=== PATIENT | female | born 1985 | race African-American/Black ===

== ENCOUNTER 2022-11-11 10:12 | Outpatient (CLI) | payer OTHER, SELFPAY ==
[2022-11-11 11:03] LABS: Influenza A QL RT-PCR Negative (Negative); Influenza B QL RT-PCR Negative (Negative); RSV RNA, RT-PCR Negative (Negative); SARS-CoV-2 RNA PCR Negative
== END 2022-11-11 10:13 | disposition home or self-care (01) ==
PROVIDERS: PCP Internal Medicine; Visit Provider Nurse Practitioner Family
DX: R06.2 Wheezing (principal); R05.9 Cough, unspecified; R06.00 Dyspnea, unspecified
CPT/HCPCS: 87637

== ENCOUNTER 2022-12-07 11:06 | Outpatient (CLI) | payer OTHER, SELFPAY ==
--- NOTE | ~2022-12-07 | XR_ITS ---
Clinical Indication: Shortness of breath PA and lateral views of the chest: Comparison: 06/06/2016 Findings: The lungs are clear, without evidence of focal consolidation or pleural effusion. Cardiome diastinal silhouette is within normal limits. Bones and soft tissues are unremarkable. Impression: Normal chest. Reviewed, dictated and finalized at [facility]. CAR LOADER Impression: Normal chest.
[2022-12-07 12:29] LABS: Basophils Percent Auto 0.4 % (0.2-1.2); Eosinophils Absolute Auto 0.3 K/mm3 (0-0.3); Eosinophils Percent Auto 2.8 % (0-4.4); Hematocrit 43.9 % (37.0-47.0); Hemoglobin 14.5 g/dL (12.0-15.0); Immature Granulocyte Absolute 0.02 K/mm3 (0.00-0.031); Immature Granulocyte Percent A 0.2 % (0-0.5); Lymphocytes Absolute Auto 3.88 K/mm3 (0.9-3.2); Mean Corpuscular Hemoglobin 30.3 pg (26-34); Mean Corpuscular Volume 91.8 fl (80-100); Mean Platelet Volume 10.4 fl (7.4-10.4); Monocytes Absolute Auto 0.8 K/mm3 (0.1-0.6); Monocytes Percent Auto 7.3 % (2.6-8.5); Neutrophils Absolute Auto 5.5 K/mm3 (1.3-6.7); Neutrophils Percent Auto 52.3 % (45.5-73.1); Platelet Count Result 261 k/mm3 (150-375); Red Blood Count 4.78 M/mm3 (4.2-5.4); Red Cell Distribution Width 14.2 % (11.5-14.5); White Blood Count 10.5 K/mm3 (4.5-10.0)
== END 2022-12-07 11:07 | disposition home or self-care (01) ==
PROVIDERS: PCP Internal Medicine; Visit Provider Nurse Practitioner Family
DX: J45.909 Unspecified asthma, uncomplicated (principal); R06.02 Shortness of breath; R05.9 Cough, unspecified
CPT/HCPCS: 36415; 71046; 85025

== ENCOUNTER 2023-01-17 11:28 | Outpatient (CLI) | payer OTHER, SELFPAY ==
[2023-01-21 04:31] LABS: Immunoglobulin E 107 kU/L (<=114)
== END 2023-01-17 11:29 | disposition home or self-care (01) ==
PROVIDERS: PCP Internal Medicine; Visit Provider Nurse Practitioner Family
DX: J45.909 Unspecified asthma, uncomplicated (principal)
CPT/HCPCS: 36415; 82785

== ENCOUNTER 2023-03-29 08:50 | Outpatient (CLI) | payer OTHER, SELFPAY ==
--- NOTE | 2023-03-29 11:00 | NEURO_ITS ---
Impression: # Complains of pain and numbness of hands. # Right ulnar neuropathy across the elbow. # No Carpal Tunnel Syndrome. # Normal needle/EMG exam. Nerve Conduction Studies Anti Sensory Summary Table Stim Site NR Peak (ms) P-T Amp (?V) Site1 Site2 Delta-P (ms) Dist (cm) Omega (m/s) Left Median Anti Sensory (2-3nd Digit) Wrist 2.3 74.7 Wrist 2-3nd Digit 2.3 14.0 61 Wrist 2.4 65.6 Wrist 2-3nd Digit 2.3 14.0 61 Right Median Anti Sensory (2-3nd Digit) Wrist 2.7 55.1 Wrist 2-3nd Digit 2.7 14.0 52 Wrist 2.7 70.3 Wrist 2-3nd Digit 2.7 14.0 52 Left Radial Anti Sensory (Base 1st Digit) Wrist 1.8 39.0 Wrist Base 1st Digit 1.8 0.0 Right Radial Anti Sensory (Base 1st Digit) Wrist 2.3 31.9 Wrist Base 1st Digit 2.3 0.0 Left Ulnar Anti Sensory (5th Digit) Wrist 2.2 56.9 Wrist 5th Digit 2.2 14.0 64 Right Ulnar Anti Sensory (5th Digit) Wrist 2.3 73.2 Wrist 5th Digit 2.3 14.0 61 Motor Summary Table Stim Site NR Onset (ms) O-P Amp (mV) Site1 Site2 Delta-0 (ms) Dist (cm) Omega (m/s) Left Median Motor (Abd Poll Brev) Wrist 2.3 7.2 Elbow Wrist 4.9 29.0 59 Elbow 7.2 6.0 Right Median Motor (Abd Poll Brev) Wrist 2.8 6.5 Elbow Wrist 4.1 26.0 63 Elbow 6.9 6.2 Left Ulnar Motor (Abd Dig Minimi) Wrist 2.3 6.0 A Elbow Wrist 4.3 25.0 58 A Elbow 6.6 4.4 Right Ulnar Motor (Abd Dig Minimi) Wrist 2.2 7.1 A Elbow Wrist 5.2 28.0 54 A Elbow 7.4 4.8 B Elbow Wrist 3.3 21.0 64 B Elbow 5.5 3.7 F Wave Studies NR F-Lat (ms) L-R F-Lat (ms) Left Median (Mrkrs) (Abd Poll Brev) 24.55 0.77 Right Median (Mrkrs) (Abd Poll Brev) 25.32 0.77 Left Ulnar (Mrkrs) (Abd Dig Min) 25.10 0.14 Right Ulnar (Mrkrs) (Abd Dig Min) 25.23 0.14 EMG Side Muscle Nerve Root Ins Act Fibs Amp Dur Recrt Comment Right 1stDorInt Ulnar C8-T1 Nml Nml Nml Nml Nml Right Ext Indicis Radial (Post Int) C7-8 Nml Nml Nml Nml Nml Right Ext Digitorum Radial (Post Int) C7-8 Nml Nml Nml Nml Nml Right BrachioRad Radial C5-6 Nml Nml Nml Nml Nml Right PronatorTeres Median C6-7 Nml Nml Nml Nml Nml Right Abd Poll Brev Median C8-T1 Nml Nml Nml Nml Nml Left 1stDorInt Ulnar C8-T1 Nml Nml Nml Nml Nml Left Ext Indicis Radial (Post Int) C7-8 Nml Nml Nml Nml Nml Left Ext Digitorum Radial (Post Int) C7-8 Nml Nml Nml Nml Nml Left BrachioRad Radial C5-6 Nml Nml Nml Nml Nml Left PronatorTeres Median C6-7 Nml Nml Nml Nml Nml Left Abd Poll Brev Median C8-T1 Nml Nml Nml Nml Nml Right ABD Dig Min Ulnar C8-T1 Nml Nml Nml Nml Nml Left ABD Dig Min Ulnar C8-T1 Nml Nml Nml Nml Nml MTDD
== END 2023-03-29 08:51 | disposition home or self-care (01) ==
PROVIDERS: PCP Nurse Practitioner Family
DX: G56.21 Lesion of ulnar nerve, right upper limb (principal)
CPT/HCPCS: 95886; 95911

== ENCOUNTER 2023-12-29 12:34 | Outpatient (CLI) | payer OTHER, SELFPAY ==
[2023-12-29 12:59] LABS: Basophils Percent Auto 0.4 % (0.2-1.2); Eosinophils Absolute Auto 0.3 K/mm3 (0-0.3); Eosinophils Percent Auto 2.8 % (0-4.4); Hematocrit 43.3 % (37.0-47.0); Hemoglobin 14.2 g/dL (12.0-15.0); Immature Granulocyte Absolute 0.02 K/mm3 (0.00-0.031); Immature Granulocyte Percent A 0.2 % (0-0.5); Lymphocytes Absolute Auto 4.97 K/mm3 (0.9-3.2); Lymphocytes Percent Auto 45.5 % (18.3-44.2); Mean Corpuscular HGB Conc 32.8 g/dl (32-36); Mean Corpuscular Hemoglobin 30.4 pg (26-34); Mean Corpuscular Volume 92.7 fl (80-100); Mean Platelet Volume 9.8 fl (7.4-10.4); Monocytes Percent Auto 8.9 % (2.6-8.5); Neutrophils Absolute Auto 4.6 K/mm3 (1.3-6.7); Neutrophils Percent Auto 42.2 % (45.5-73.1); Platelet Count Result 268 k/mm3 (150-375); Red Blood Count 4.67 M/mm3 (4.2-5.4); Red Cell Distribution Width 13.8 % (11.5-14.5); White Blood Count 10.9 K/mm3 (4.5-10.0)
[2023-12-29 13:27] LABS: Atypical Lymphocytes Present; Platelet Estimate Adequate (Adequate); Schistocytes None Seen (NORMAL)
== END 2023-12-29 12:35 | disposition home or self-care (01) ==
LOC: ANHLAB 12:36
PROVIDERS: PCP Nurse Practitioner Family; Visit Provider Nurse Practitioner Family
DX: J45.40 Moderate persistent asthma, uncomplicated (principal)
CPT/HCPCS: 36415; 85025

== ENCOUNTER 2024-01-11 06:19 | Outpatient (CLI) | payer OTHER, SELFPAY ==
--- NOTE | 2024-01-24 21:44 | WPDSLEEPSTUD ---
Sleep Study Date of Study: 01/11/24 Ordering Provider: Charles Stein APRN Interpreting Physician: Lucrecia Burger MD Sleep Study Type: Split Polysomnogram Height: 1.57 m Weight: 122.47 kg Body Mass Index: 49.4 Neck Circumference (inches): 16 [place]: 20 Reason for Sleep Study Excessive sleepiness, mixed narcolepsy with obstructive sleep apnea * 02/09/18 nocturnal polysomnogram = very short sleep latency and short REM latency most likely consistent with inadequately controlled narcolepsy. * 05/30/2028 split night sleep study; severe HELDER, AHI 41 in supine, with a titration of CPAP, which improved sleep staging, the presence of significant REM rebound. Recommended treatment was APAP [id number]. Sleep History Richa Brown is a 38-year-old woman with severe excessive daytime sleepiness. her baseline medical comorbidities include hypertension, GERD, anxiety and depression, environmental allergies, narcolepsy without cataplexy and obstructive sleep apnea. She has not been able to wear APAP effectively. She cannot get enough quality sleep at night. She wakes during the night. Once she is awake at night, it is difficult for her to return to sleep. She has a difficult time using PAP due to shortness of breath and the sensation of choking during the night. This suggests that her asthma and allergies are not treated appropriately. In her sleep questionnaire, she says she has some sleep paralysis. She has a difficult time focusing during the day. She has had prior sleep studies, currently takes modafinil 200 mg twice a day without much help. Dr Ottoniel Dang, ENT/allergy, at [facility] performed a turbinate reduction and adenoidectomy earlier this year, and she believes that this may have helped her breathing, She has used nasal sprays, has not been able to get all her issues improved at the same time. With nasal problems, poorly controlled asthma, untreated obstructive sleep apnea and narcolepsy, she is not feeling well. She is being re-tested for HELDER in hopes of getting a pressure that she can tolerate to manage her HELDER nad narcolepsy better. She has issues trying to fall asleep and maintain sleep. She has tried melatonin and Tylenol PM without improvement. She is maintained on modafinil 200mg at 6:00 a.m. and 200mg at noon. She feels the medication is effective for only 2 hours. For this reason, she does not drive, uses public transportation. She constantly awakens from sleep short of breath. She constantly wakes at night with heartburn, belching or coughing.??She constantly snores, and always snores loudly enough that others complain. She frequently has trouble sleeping when she has a cold. She constantly wakes up gasping for breath during the night. She constantly has breathing problems at night. She constantly sweats excessively at night. She frequently notices her heart pounding or beating irregularly during the night. She constantly falls asleep during the day. She constantly falls asleep involuntarily, does not fall asleep while driving as she has given this up due to excessive sleepiness. She takes public transportation. She does not have difficulties at work due to excessive sleepiness because she no longer works due to her multiple medical problems. She frequently experiences loss of muscle tone with strong emotion. She constantly feels paralyzed on waking or falling asleep. She constantly experiences vivid dreams upon waking or falling asleep. She rarely feels afraid of going to sleep. She occasionally has nightmares. She occasionally recalls her dreams. She frequently has thoughts racing through her mind. She frequently feels sad or depressed. She constantly feels anxiety. She constantly notices parts of her body jerk. She occasionally kicks during the night. She frequently feels crawling or aching feelings in her legs. She frequently feels leg pain at night. She frequently has morning jaw pain, although she never grinds her teeth at
[2024-01-24 21:47] VITALS: BMI 49.4
== END 2024-01-12 07:56 | disposition home or self-care (01) ==
PROVIDERS: PCP Nurse Practitioner Family; Visit Provider Nurse Practitioner Family
DX: G47.33 Obstructive sleep apnea (adult) (pediatric) (principal); I10 Essential (primary) hypertension; Z68.42 Body mass index [BMI] 45.0-49.9, adult
CPT/HCPCS: 95811

== ENCOUNTER 2024-01-18 11:28 | Outpatient (CLI) | payer OTHER, SELFPAY ==
[2024-01-21 15:13] LABS: DHEA-Sulfate 238 mcg/dL (23-266)
[2024-01-24 00:55] LABS: Testosterone Free 6.9 pg/mL (0.1-6.4); Testosterone Total 46 ng/dL (2-45)
== END 2024-01-18 11:29 | disposition home or self-care (01) ==
LOC: ANHLAB 11:30
PROVIDERS: PCP Nurse Practitioner Family; Visit Provider Obstetrics & Gynecology
DX: E66.9 Obesity, unspecified (principal)
CPT/HCPCS: 36415; 82627; 83498; 84402; 84403

== ENCOUNTER 2024-11-05 08:05 | Outpatient (CLI) | payer OTHER, SELFPAY ==
--- NOTE | 2024-11-05 09:15 | NEURO_ITS ---
Impression: # Complains of numbness of hands. Status post Carpal Tunnel Release last year. Borderline diabetic. ? # Normal Nerve Conduction Study; No Carpal Tunnel Syndrome or ulnar neuropathy. # Normal needle/EMG exam. # Clinical correlation recommended. Nerve Conduction Studies Anti Sensory Summary Table ?Stim Site NR Peak (ms) P-T Amp (?V) Site1 Site2 Delta-P (ms) Dist (cm) Omega (m/s) Left Median Anti Sensory (2-3nd Digit) Wrist ? 2.6 68.9 Wrist 2-3nd Digit 2.6 14.0 54 Wrist ? 2.6 77.2 Wrist 2-3nd Digit 2.6 14.0 54 Right Median Anti Sensory (2-3nd Digit) Wrist ? 2.6 53.4 Wrist 2-3nd Digit 2.6 14.0 54 Wrist ? 2.6 67.7 Wrist 2-3nd Digit 2.6 14.0 54 Left Radial Anti Sensory (Base 1st Digit) Wrist ? 2.3 17.1 Wrist Base 1st Digit 2.3 0.0 Right Radial Anti Sensory (Base 1st Digit) Wrist ? 2.7 12.0 Wrist Base 1st Digit 2.7 0.0 Left Ulnar Anti Sensory (5th Digit) Wrist ? 2.4 67.4 Wrist 5th Digit 2.4 14.0 58 Right Ulnar Anti Sensory (5th Digit) Wrist ? 2.3 58.9 Wrist 5th Digit 2.3 14.0 61 Motor Summary Table ?Stim Site NR Onset (ms) O-P Amp (mV) Site1 Site2 Delta-0 (ms) Dist (cm) Omega (m/s) Left Median Motor (Abd Poll Brev) Wrist ? 2.7 7.8 Elbow Wrist 5.6 32.0 57 Elbow ? 8.3 2.9 Right Median Motor (Abd Poll Brev) Wrist ? 3.0 6.4 Elbow Wrist 4.2 26.0 62 Elbow ? 7.2 5.9 Left Ulnar Motor (Abd Dig Minimi) Wrist ? 2.0 6.3 A Elbow Wrist 4.3 25.0 58 A Elbow ? 6.3 5.6 Right Ulnar Motor (Abd Dig Minimi) Wrist ? 2.3 5.4 A Elbow Wrist 4.6 27.0 59 A Elbow ? 6.9 4.8 F Wave Studies ?NR F-Lat (ms) L-R F-Lat (ms) Left Median (Mrkrs) (Abd Poll Brev) ? 26.45 0.94 Right Median (Mrkrs) (Abd Poll Brev) ? 27.39 0.94 Left Ulnar (Mrkrs) (Abd Dig Min) ? 26.56 0.08 Right Ulnar (Mrkrs) (Abd Dig Min) ? 26.48 0.08 EMG ?Side Muscle Nerve Root Ins Act Fibs Amp Dur Recrt Comment Right 1stDorInt Ulnar C8-T1 Nml Nml Nml Nml Nml Right Ext Indicis Radial (Post Int) C7-8 Nml Nml Nml Nml Nml Right Ext Digitorum Radial (Post Int) C7-8 Nml Nml Nml Nml Nml Right BrachioRad Radial C5-6 Nml Nml Nml Nml Nml Right PronatorTeres Median C6-7 Nml Nml Nml Nml Nml Right Abd Poll Brev Median C8-T1 Nml Nml Nml Nml Nml Right ABD Dig Min Ulnar C8-T1 Nml Nml Nml Nml Nml Left 1stDorInt Ulnar C8-T1 Nml Nml Nml Nml Nml Left Ext Indicis Radial (Post Int) C7-8 Nml Nml Nml Nml Nml Left Ext Digitorum Radial (Post Int) C7-8 Nml Nml Nml Nml Nml Left BrachioRad Radial C5-6 Nml Nml Nml Nml Nml Left PronatorTeres Median C6-7 Nml Nml Nml Nml Nml Left Abd Poll Brev Median C8-T1 Nml Nml Nml Nml Nml Left ABD Dig Min Ulnar C8-T1 Nml Nml Nml Nml Nml MTDD
== END 2024-11-05 08:06 | disposition home or self-care (01) ==
PROVIDERS: Visit Provider Orthopaedic Surgery
DX: M54.12 Radiculopathy, cervical region (principal); R20.0 Anesthesia of skin
CPT/HCPCS: 95886; 95911

== ENCOUNTER 2025-01-08 13:13 | Outpatient (CLI) | payer OTHER, SELFPAY ==
--- OUTSIDE RECORDS SUMMARY | 2025-01-08 15:04 | XMS_ITS | Referral Summary ---
Author Organization [facility] Address [address] [place] [address] Care Team Providers Care Manual Lathe Machinist Name Role Phone Adela Juarez Primary Care Provider [phone] Source Comments [facility],non-owned Affiliates and Associated Physician Practices is amultiple site organization consisting of ambulatory clinics and hospital sitesin [place], [place], [place] and [place]. This disclosure is being madepursuant to the Care Everywhere program and may not contain all information available regarding this patient. Last updated 18.[facility] Encounters Date Type Department Care Team Description 12/10/2024 Travel 12/10/2024 12:25 PM INJECTION MOULDING MACHINE OPERATOR - 12/10/2024 11:59 PM INJECTION MOULDING MACHINE OPERATOR Hospital Encounter [facility] [address] [facility] [address] [place] [address] Chencho Kingston MD Anesthesiology Discharge Disposition: Home or Self Care 11/29/2024 Travel 11/15/2024 Telephone [facility] [address] [place] [phone] Ottoniel Dang MD Immunotherapy (Vial count) 11/15/2024 Travel 11/15/2024 1:15 PM INJECTION MOULDING MACHINE OPERATOR Office Visit [facility] [address] [place] [phone] Ottoniel Dang MD Allergic rhinitis due to pollen, unspecified seasonality (Primary Dx); HELDER (obstructive sleep apnea); Nasal turbinate hypertrophy 11/13/2024 Orders Only [facility] [address] [facility] [address] [place] [address] Chencho Kingston MD Muscle pain ; Trigger point of thoracic region 11/13/2024 Telephone [facility] [address] [facility] [address] [place] [address] Nelly Germain RN Follow-up 10/17/2024 Travel from Last 3 Months Allergies Active Allergy Reactions Criticality Noted Date Comments Shellfish Allergy Itching 12/27/2022 Medications * Be aware that medications may not be up to date on this document. Alwaysverify current medications with the patient. Medication Sig Dispensed Refills Start Date End Date Status modafinil (Provigil) 200 MG tablet Take 1 (one) tablet by mouth 2 times daily 12/20/2022 Active fluticasone propionate (Flonase) 50 MCG/ACT nasal spray [place] 1 (one) spray into each nostril 2 times daily 12/14/2022 Active vitamin D, ergocalciferol, (Drisdol) 1.25 MG (72407 UT) capsule Take 1 (one) capsule by mouth every 7 days 11/21/2022 Active Symbicort 160-4.5 MCG/ACT inhaler Inhale 2 (two) puffs by mouth 2 times daily 12/14/2022 Active benzonatate (Tessalon) 200 MG capsule Take 1 (one) capsule by mouth 3 times daily as needed for cough 12/15/2022 Active amLODIPine (Norvasc) 10 MG tablet Take 1 (one) tablet by mouth once daily 10/10/2022 Active albuterol (Proventil;Ventol in) (2.5 MG/3ML) 0.083% nebulizer solution Inhale 2.5 (two and one-half) mg by mouth as needed 11/15/2022 Active escitalopram (Lexapro) 20 MG tablet Take 1 (one) tablet by mouth once daily 04/22/2023 Active cyanocobalamin (Vitamin B-12) injection Inject 0.1 mcg into muscle every 30 days Active azelastine (Astelin) 0.1 % nasal spray [place] 1 (one) spray into each nostril 2 times daily 90 mL 4 05/12/2023 Active cetirizine (ZyrTEC) 10 MG tablet Take 1 (one) tablet by mouth once daily 90 tablet 4 05/12/2023 Active montelukast (Singulair) 10 MG tablet Take 1 (one) tablet by mouth once daily Active albuterol HFA (Proventil; Ventolin; Proair) 108 (90 Base) MCG/ACT inhaler Inhale 1 (one) puff by mouth as needed 05/22/2023 Active famotidine (Pepcid) 40 MG tablet 08/25/2023 Active pantoprazole (Protonix) 40 MG packet 08/25/2023 Active losartan (Cozaar) 50 MG tablet Take 1 (one) tablet by mouth once daily 09/09/2023 Active EPINEPHrine (Epipen) 0.3 MG/0.3ML auto-injector pen Inject 0.3 mL into muscle once as needed for Anaphylaxis 0.6 mL 11/01/2023 Active Additional Information Patient not taking.Reported on 11/15/2024 cyclobenzaprine (Flexeril) 10 MG tabletIndications :Lumbar facet arthropathy Take 1 (one) tablet by mouth 3 times daily as needed for Muscle Spasms 90 tablet 3 01/17/2024 Active spironolactone (Aldactone) 50 MG tablet Take 1 (one) tablet by mouth 2 times daily 01/24/2024 Active Spiriva Respimat 1.25 MCG/ACT AERS Inhale 2 puffs by mouth every 24 hours 02/02/2024 Active topiramate (Topamax) 100 MG tablet Take 1 (one) tablet by mouth once daily for 7 days, THEN 1.5 (one and one-half) tablets once daily for 7 days, THEN 1 (one) tablet 2 times daily. 110 tablet 2 04/04/2024 Active Additional Information Patient taking differently: 100mg BID, Reported on 07/13/2024 Blood Glucose Monitoring Suppl (Blood Glucose Monitor System) w/Device KITIndications:Pr ediabetes Use 1 Each as directed check blood sugar three times daily 1 Each 05/01/2024 Active lancetsIndication s:Prediabetes Use 1 (one) Each 3 times daily 100 Each 11 05/01/2024 Active blood glucose test stripIndications: Prediabetes Use 1 (one) strip 3 times daily 50 strip 2 05/01/2024 Active SYRINGE-NEEDLE, DISP, 3 ML 25G X 5/8 3 ML MISC As directed for immunotherapy 30 Each 2 06/05/2024 Active Sodium Oxybate ER (Lumryz) 4.5 g PACK Take 4.5 mg by mouth at bedtime Active oxyCODONE, immediate release, (Roxicodone) 5 MG tabletIndications :Post-op pain Take 1 (one) tablet by mouth every 4 hours as needed 12 tablet 07/31/2024 Active Additional Information Patient not taking.Reported on 11/15/2024 acetaminophen (Tylenol) 325 MG tablet Take 2 (two) tablets by mouth every 6 hours as needed for Fever or Pain Maximum allowable Acetaminophen amount = 4 Grams (4000 mg) / 24 hours. 60 tablet 07/31/2024 Active ibuprofen (Motrin) 600 MG tablet Take 1 (one) tablet by mouth every 6 hours as needed for Pain 30 tablet 07/31/2024 Active busPIRone (Buspar) 7.5 MG tablet Take 1 (one) tablet by mouth 2 times daily 10/15/2024 Active cyanocobalamin (Vitamin B-12) injection Inject 1,000 (one thousand) mcg subcutaneously every 30 days 10/15/2024 Active Active Problems Patient Care Coordination No te Formatting of this note migh t be different from the original. Repeat US needed 4-5 weeks from 10/24 Problem Noted Date Diagnosed Date Primary obstructive sleep apnea of 07/30 Amenorrhea 09/06/2023 09/06/2023 Bacterial vaginosis 09/06/2023 09/06/2023 Heart valve disease 09/06/2023 09/06/2023 Irregular periods 09/06/2023 09/06/2023 Menorrhagia 09/06/2023 09/06/2023 Obesity 09/06/2023 09/06/2023 Recurrent ventral hernia 09/06/2023 023 Uterine leiomyoma 09/06/2023 09/06/2023 Gastroesophageal reflux disease without esophagi tis 08/25/2023 09/06/2023 Increased frequency of urination 08/25/2023 09/06/2023 Sprain of left ankle 08/25/2023 09/06/2023 Left wrist pain 08/09/2023 09/06/2023 Degeneration of thoracic intervertebral disc 09/06/2023 Carpal tunnel syndrome 05/09/2023 Encounter for screening for cardiovascular disor ders 05/09/2023 09/06/2023 Hypertension 05/09/2023 09/06/2023 Shortness of breath 05/09/2023 09/06/2023 Numbness of hand 05/03/2023 09/06/2023 Mixed anxiety and depressive disorder 04/22/2023 09/06/2023 Pain in both feet 04/22/2023 09/06/2023 Chest pain 04/22/2023 09/06/2023 Ulnar nerve entrapment at elbow 04/05/2023 09/06/2023 Claustrophobia 03/17/2023 09/06/2023 Pain in both hands 02/16/2023 09/06/2023 Paresthesia 02/16/2023 09/06/2023 Hypertrophy of adenoids 01/25/2023 09/06/20 Neck pain 01/25/2023 09/06/2023 Thoracic back pain 01/25/2023 09/06/2023 Sleep apnea 01/19/2023 09/06/2023 Hyperlipidemia 01/19/2023 09/06/2023 Insulin resistance 01/19/2023 09/06/2023 Narcolepsy 01/19/2023 09/06/2023 Vitamin D deficiency 12/29/2022 09/06/2023 Elevated creatine kinase level 06/22/2022 1 High C-reactive protein 06/22/2022 09/06/20 Leukocytosis 06/22/2022 09/06/2023 Cobalamin deficiency 02/18/2022 09/06/2023 Vitamin B12 deficiency (non anemic) 12/27/2021 09/06/2023 Supervision of other high-risk 013 Overview (09/21/2015): CMV IgG 3.14 (positive), IgM <0.2 not detected, IgG avidity index 0.87 (>0.6 high avidity index). Resolved Problems Problem Noted Date Diagnosed Date Resolved Date Upper respiratory infection 03/21/2023 09/06/2023 09/20/2023 Immunizations Name Administration Dates Next Due Candida Jaime primary monova lent 12+ yr 0.5mL 11/10/2021,10/21/2021,10/04/2021, 021 DTP, HISTORIC VACCINE 08/27/1993, 988,09/11/1987, 987,06/05/1987,04/03/1987,01/30/1987 FLU, HISTORIC VACCINE 10/18/2005 HEP B VACCINE, PED/ADOL 03/05/1997,11/20/1996, HIB VACCINE 11/23/1988 INFLUENZA VACCINE 10/18/2005 INFLUENZA VACCINE, QUADR. (F LUZONE; FLULAVAL; FLUARIX; AFLURIA QUADRIVALENT; 6MO+), 0.5 ML (IIV4) 08/25/2023,10/04/2022 MMR VACCINE 08/27/1993,01/07/1988 POLIO OPV 08/27/1993, 8,06/05/1987, 987,01/30/1987 Social History Tobacco Use Types Packs/Day Years Used Date Smoking Tobacco: Former Cigars Smokeless Tobacco: Never Tobacco Cessation:Counseling Given: Not Answered Comments:Black and milds - some day user Alcohol Use Standard Drinks/Week Comments Yes 0 (1 standard drink = 0.6 oz pure alcohol) rarely/socially, maybe one a month AUDIT-C Answer Date Recorded Q1: How often do you have a drink containing alcohol? Never 07/30/2024 Q2: How many drinks containi ng alcohol do you have on a typical day when you are drinking? Patient does not drink Q3: How often do you have si x or more drinks on one occasion? Never 07/30/2024 PHQ-2 Answer Date Recorded PHQ2 TOTAL SCORE 0 12/27/2022 Sex and Gender Information Value Date Recorded Sex Assigned at Female 07/05/2023 3:56 PM CDT Gender Identity Female 07/05/2023 3:56 PM CDT Sexual Orientation Not on file Last Filed Vital Signs Vital Sign Reading Time Taken Comments Blood Pressure 132/72 12/10/2024 12:56 PM INJECTION MOULDING MACHINE OPERATOR Pulse 91 12/10/2024 12:56 PM INJECTION MOULDING MACHINE OPERATOR Temperature 36.7 C (98 F) 12/10/2024 12:56 PM INJECTION MOULDING MACHINE OPERATOR Respiratory Rate 18 12/10/2024 12:56 PM INJECTION MOULDING MACHINE OPERATOR Oxygen Saturation 96% 07/31/2024 8:35 AM CDT Inhaled Oxygen Concentration - - Weight 123.8 kg (273 lb) 11/15/2024 1:10 PM INJECTION MOULDING MACHINE OPERATOR Height 157.5 cm (5' 2 ) 11/15/2024 1:10 PM INJECTION MOULDING MACHINE OPERATOR Body Mass Index 49.93 11/15/2024 1:10 PM INJECTION MOULDING MACHINE OPERATOR Functional Status Functional Status Response Date of Assess ment Is person deaf or have jesse us hearing difficulty? No 07/31/2024 Is person blind or have seri ous difficulty seeing? No 07/31/2024 Does person have serious dif ficulty walking/climbing stairs? No 07/31/2024 Does person have difficulty dressing/bathing? No 07/31/2024 Does person have difficulty doing errands alone? Yes-not while on pain meds 07/31/2024 Cognitive Status Response Date of Assessm ent Does person have difficulty concentrating/remembering/making decisions? No 07/31/2024 Plan of Treatment Upcoming Encounters Date Type Department Care Team (Late st Contact Info) Description 01/11/2025 11:30 AM INJECTION MOULDING MACHINE OPERATOR Office Visit [facility] [address] [place] [phone] Twila Oshea PA-C [address] [facility] [place] [phone] 11/19/2025 10:30 AM INJECTION MOULDING MACHINE OPERATOR Office Visit [facility] [address] [place] [address] [phone] Ottoniel Dang MD [facility] [place] [address] Procedures Procedure Name Priority Date/Time Associated Diagnosis Comments PAIN MANAGEMENT PROCEDURE TIME Routine 12/10/2024 1:43 PM INJECTION MOULDING MACHINE OPERATOR Muscle pain from Last 3 Months Results * Pain Management Procedure Time (12/10/2024 1:43 PM INJECTION MOULDING MACHINE OPERATOR) Anatomical Region Laterality Modality Radio Fluoroscop y Narrative 12/10/2024 1:20 PM INJECTION MOULDING MACHINE OPERATOR Chencho Kingston MD 12/10/2024 1:49 PM 12/10/2024 Trigger Point Injections under ultrasound guidance Dx: M79.18 - Myofascial Pain Syndrome Consent: The patient was identified and the procedure permit was explained and signed. I have discussed with the patient the risks, benefits, side effects and complications of trigger point injections. I have answered the patient's questions regarding the procedure and have given the patient the opportunity to refuse the procedure. I also have discussed alternative methods of treatment. The patient stated understanding of the procedure and wished to proceed with trigger point injections. Procedure: A 27 Gauge 1.5 inch needle was used to perform the trigger point injections. The areas injected were first identified by direct palpation to the muscles that were most painful to the patient. A chloraprep stick was used to cleanse the skin before each injection. The needle was carefully placed into each muscle under direct visualization with ultrasound guidance and follwing a negative aspiration test, each muscle was then injected with a combination solution consisting of 15 ml 0.5% bupivacaine and 10 mg dexamethasone. The following muscles were injected: The left and right trapezius, latissimus dorsi, and thoracic paraspinous. A total of 15cc of the injectable solution was used. The needle was removed intact. The patient tolerated the procedure well and there were no complications. Recovery: Postprocedure instructions were given to the patient and a follow up appointment was confirmed. The patient was also discharged with information on how to reach the clinic or congressional aide physician at anytime for questions or complaints. Estimated blood loss: Minimal Chencho Barnett ORDERABLES from Last 3 Months Advance Directives * Full Code (Latest Code Status on File) Date Activated Date Inactivated Comments 07/30/2024 8:13 PM 07/31/2024 11:34 AM Care Teams Manual Lathe Machinist Relationship Specialty Start Date End Date Adela Juarez DO [address] [place] [phone] PCP - General Family Medicine 02/28/24
--- OUTSIDE RECORDS SUMMARY | 2025-01-08 15:04 | XMS_ITS | CONTINUITY OF CARE DOCUMENT ---
Author Name benita benita Address Unknown Organization [facility] Address [address] [place] [address] Phone [phone] Care Team Providers Care Correctional Casework Specialist Name Role Phone Michelle Freitas MD Unavailable [phone] Ann DO, Adela Unavailable [phone] Ann DO, Adela Unavailable [phone] PROBLEMS Condition Status Date Provider Notes Asthma active Cindy Cr Cardiology examination active Michelle hewitt MD Hyperlipidemia active Michelle Freitas MD Hypertension active Michelle Freitas MD Shortness of breath active Michelle Freitas MD Sleep apnea active Michelle Freitas MD Carpal tunnel active Michelle Freitas MD Polycystic ovarian syndrome active Pamela garcia [employer] ENCOUNTERS Date Type Provider Location Encounter Diag nosis 12/02 - 12/02 In-person encounter Office Visit Michelle Freitas MD [facility] 04/02 - 04/05 In-person encounter Office Visit Michelle Freitas MD [facility] Polycystic ovarian syndrome - In-person encounter Office Visit Michelle Freitas MD [facility] 06/10 - 06/10 In-person encounter Office Visit Michelle Freitas MD [facility] 05/09 - 05/10 In-person encounter Office Visit Michelle Freitas MD [facility] Cardiology examinationHyperlipidemiaHypertensionShortness of breathSleep apneaCarpal tunnel VITAL SIGNS Date Observation Value Provider Body Mass Index (Ratio) 49.71 kg/m2 Jennifer melyssa Puhse blood pressure, diastolic 89 mm[Hg] Tristan beardenn Lawson blood pressure, systolic 130 mm[Hg] Corrina veronica Lawson oxygen saturation, oximetry 97 % [facility] pulse rate 93 [facility] blood pressure, cuff size regular Tristan rinku Lawson weight E&M 271.8 [lb_av] [facility] height E&M 62 [in_i] [facility] Body Mass Index (Ratio) 51.39 kg/m2 Milo Freitas MD blood pressure, diastolic 94 mm[Hg] Haylie nkLogic blood pressure, systolic 134 mm[Hg] Lakshmi kLogic blood pressure, cuff size large Ja rret blood pressure, diastolic 94 mm[Hg] Ja rret blood pressure, systolic 134 mm[Hg] Jar ret pulse rate 97 /min Porter oxygen saturation, oximetry 97 % Porter respiratory rate E&M 14 /min Porter weight E&M 281 [lb_av] Porter y height E&M 62 [in_i] Porter y Body Mass Index (Ratio) 44.99 kg/m2 Milo Freitas MD blood pressure, diastolic 91 mm[Hg] Haylie nkLogic blood pressure, systolic 140 mm[Hg] Lakshmi kLogic blood pressure, cuff size large Ja rret blood pressure, diastolic 91 mm[Hg] Ja rret blood pressure, systolic 140 mm[Hg] Adela ret pulse rate 87 /min Porter y respiratory rate E&M 12 /min Porter oxygen saturation, oximetry 97 % Porter weight E&M 246 [lb_av] Porter y height E&M 62 [in_i] Porter y Body Mass Index (Ratio) 42.98 kg/m2 Milo Freitas MD blood pressure, diastolic 93 mm[Hg] [facility] flako Triplett blood pressure, systolic 145 mm[Hg] Becky Triplett oxygen saturation, oximetry 98 % Angelic Triplett pulse rate 100 /min Angelictristan Triplett respiratory rate E&M 16 /min Angelic bowen weight E&M 235 [lb_av] Angelic Triplett height E&M 62 [in_i] Angelic Triplett weight E&M 237 [lb_av] Melida Bynum Body Mass Index (Ratio) 43.34 kg/m2 Milo Freitas MD blood pressure, cuff size large Ke rri Brainuenenfmelissa blood pressure, diastolic 70 mm[Hg] Ke rri Brainuenenfmelissa blood pressure, systolic 120 mm[Hg] Chioma Foster oxygen saturation, oximetry 99 % Vaishnavi Foster respiratory rate E&M 12 /min Vaishnavi patton pulse rate 111 /min Vaishnavi elizondo weight E&M 237 [lb_av] Vaishnavi Dennis lder height E&M 62 [in_i] Vaishnavi Sonny lder ALLERGIES Allergy Name Onset Date Reaction Criticality Status SHELLFISH Low Criticality active HISTORY OF MEDICATION USE Medication Status Instructions Dates Provider Indications Com ments losartan 50 mg tablet active TAKE 1 TABLET BY MOUTH ONCE A DAY WITH EVENING MEDICATIONS Freda Dey spironolactone 50 mg tablet active Pamela Ortez NP Spiriva Respimat 1.25 mcg/actuation mist active 2 puff as directed once a day Pamela Ortez NP losartan 50 mg tablet completed Take 1 tablet by mouth once a day Take with evening medications - Freda Dey Symbicort 160-4.5 mcg/actuation HFA aerosol inhaler active Inhale 2 puff using inhaler twice a day Pamela Ortez NP Trulicity 3 mg/0.5 mL pen injector completed - Pamela Ortez NP escitalopram oxalate 20 mg tablet active Take 1 tablet by mouth once daily Shaunna Lawson albuterol sulfate 2.5 mg/3 mL (0.083 %) solution for nebulization active Vaishnavi Foster albuterol sulfate 90 mcg/actuation HFA aerosol inhaler active TAKE TWO PUFFS BY MOUTH NEEDED Shaunna Lawson fluticasone propionate 50 mcg/actuation spray,suspension active 2 spray into both nostrils twice a day Pamela Ortez NP ergocalciferol (vitamin D2) 1,250 mcg (50,000 unit) capsule active Vaishnavi Foster montelukast 10 mg tablet active 1 tablet every night Pamela Ortez NP amlodipine 10 mg tablet active Take One Tablet By Mouth Every Day Pamela Ortez NP modafinil 200 mg tablet active 1 tablet by mouth twice a day Pamela Ortez NP SOCIAL HISTORY Date Observation Value Provider personal history of marijuana use no Michelle Freitas MD drug use no Michelle yoo MD alcohol use, average drinks per day social Michelle Freitas MD alcohol use yes Michelle yoo MD smoking status Former smoker Michelle thompson MD personal history of marijuana use no Pamela Ortez [employer] drug use no Pamela Ortez [employer]SE alcohol use, average drinks per day social Pamela Ortez [employer]SE alcohol use yes Pamela Ortez [employer] N[employer]SE smoking status Former smoker Pamela Joshi ri [employer] NURSE social history reviewed E&M revi ewed - no changes required Michelle Freitas MD number of grandchildren Michelle Freitas MD social history reviewed E&M revi ewed - no changes required Michelle Freitas MD INSURANCE PROVIDERS Payer name Policy type / Coverage type [place] [employer]ICA[employer] (2) Medicaid [id number] ADVANCE DIRECTIVES Name Date DISCUSSED - NO DECISION MADE TREATMENT PLAN Date Name Performer [id number],S, H er updated medication list for this problem includes: Symbicort 160-4.5 Mcg/actuation Hfa Aerosol Inhaler (Budesonide-formoterol) Albuterol Sulfate 2.5 Mg/3 Ml (0.083 %) Solution For Nebulization (Albuterol sulfate) Albuterol Sulfate 90 Mcg/actuation Hfa Aerosol Inhaler (Albuterol sulfate) Montelukast 10 Mg Tablet (Montelukast) Michelle Freitas MD [id number],Neal R trinh will arrange for her to have treadmill stress test. Summary and Interpretation 1 . Normal exercise capacity 2. Normal hemodynamic response to exercise 3 [address] or T changes 4. No significant arrhythmias occasional PVCs noted during stress 5 . There is no evidence for exercise-induced myocardial ischemia Michelle Freitas MD [id number],NealG missy worked up with ENT at [facility] for HELDER, may end up getting Inspire. Michelle Freitas MD [id number],W,W e will increase Losartan to 50mg Documented BP reading is from patient's home BP readings due to white coat hypertension. Will try additional med losartan 25 mg to see if we can bring down BP. Has benefitted from sodium reduction in diet. This will also help with valve disease and diabetes. H er updated medication list for this problem includes: Losartan 25 Mg Tablet (Losartan) ..... Take 1 tablet by mouth once a day take with evening medications Amlodipine 10 Mg Tablet (Amlodipine) Michelle Freitas MD [id number],C, N ot on med RX Michelle Freitas MD [id number],C,W ill try additional med losartan 25 mg to see if we can bring down BP. Has benefitted from sodium reduction in diet. This will also help with valve disease and diabetes. H er updated medication list for this problem includes: Losartan 25 Mg Tablet (Losartan) ..... Take 1 tablet by mouth once a day take with evening medications Amlodipine 10 Mg Tablet (Amlodipine) BP today: 145/93 P rior BP: 120/70 (05/09/2023) Michelle Freitas MD [id number],C, S evere HELDER intermiditently using CPAP. Also sees ENT may require surgical management at [facility] Michelle Freitas MD [id number],C,C onclusions: Moderate airway obstruction and a response to bronchodilators indicates asthma. The absence of overinflation suggests a r estrictive process such as pleural or chest wall disease. P ulmonary Function Diagnosis: M oderate Obstructive Airways Disease -Asthmatic Type Michelle Freitas MD [id number],S,R ecent surgery right hand done at [facility] by Shun Sy planned for getting left hand done as well Michelle Freitas MD [id number],S,M ost likely associated with obesity and sleep apnea check echo and PFT Michelle Freitas MD [id number],S,S evere HELDER intermiditently using CPAP. Also sees ENT may require surgical management at [facility] Michelle Freitas MD [id number],C, H er updated medication list for this problem includes: Amlodipine 10 Mg Tablet (Amlodipine) BP today: 120/70 Michelle Freitas MD [id number],C,R trinh GONG will arrange for her to have treadmill stress test. Michelle Freitas MD [id number],S,Not on med RX Michelle Freitas MD Cardiology: Link tsang CP will arrange for her to have treadmill stress test. Summary and Interpretation 1 . Normal exercise capacity 2. Normal hemodynamic response to exercise 3 [address] or T changes 4. No significant arrhythmias occasional PVCs noted during stress 5 . There is no evidence for exercise-induced myocardial ischemia Michelle Freitas MD Cardiology:This visi t has been a part of the consistent, comprehensive, and ongoing management of the chronic medical condition(s) listed above for the patient. Her updated medication list for this problem includes: Losartan 50 Mg Tablet (Losartan) ..... Take 1 tablet by mouth once a day with evening medications Spironolactone 50 Mg Tablet (Spironolactone) Amlodipine 10 Mg Tablet (Amlodipine) ..... Take one tablet by mouth every day BP today: 130/89 P rior BP: 134/94 (04/02/2024) Michelle Freitas MD Cardiology:The patie nt is using CPAP on a regular basis. The patient has been benefiting from therapy and should continue use. T his visit has been a part of the consistent, comprehensive, and ongoing management of the chronic medical condition(s) listed above for the patient. Michelle Freitas MD Cardiology:This visi t has been a part of the consistent, comprehensive, and ongoing management of the chronic medical condition(s) listed above for the patient. Has been having trouble controlling Asthma symptoms. She follows with Pulmonology for management. H er updated medication list for this problem includes: Her updated medication list for this problem includes: Albuterol Sulfate 90 Mcg/actuation Hfa Aerosol Inhaler (Albuterol sulfate) ..... Take two puffs by mouth as needed Montelukast 10 Mg Tablet (Montelukast) ..... 1 tablet every night Symbicort 160-4.5 Mcg/actuation Hfa Aerosol Inhaler (Budesonide-formoterol) ..... Inhale 2 puff using inhaler twice a day Spiriva Respimat 1.25 Mcg/actuation Mist (Tiotropium bromide) ..... 2 puff as directed once a day Albuterol Sulfate 2.5 Mg/3 Ml (0.083 %) Solution For Nebulization (Albuterol sulfate) Michelle Freitas MD Cardiology:This visi t has been a part of the consistent, comprehensive, and ongoing management of the chronic medical condition(s) listed above for the patient. Conclusions: Moderate airway obstruction and a response to bronchodilators indicates asthma. The absence of overinflation suggests a r estrictive process such as pleural or chest wall disease. P ulmonary Function Diagnosis: Moderate Obstructive Airways Disease -Asthmatic Type October 02, 2024 H HAD AIRLIFT PROCEDURE DONE AT [facility] AND NOTICES IMPROVEMENT IN SOB S TILL USES CPAP INTERMITTENTLY Michelle Freitas MD Cardiology: O n Spironolactone. Follows with Endocrinology at [facility]. Michelle Freitas MD Cardiology: O n Spironolactone. Follows with Endocrinology at [facility]. Pamela Ortez NP Cardiology: H as been having trouble controlling Asthma symptoms. She follows with Pulmonology for management. H er updated medication list for this problem includes: Montelukast 10 Mg Tablet (Montelukast) ..... 1 tablet every night Symbicort 160-4.5 Mcg/actuation Hfa Aerosol Inhaler (Budesonide-formoterol) ..... Inhale 2 puff using inhaler twice a day Spiriva Respimat 1.25 Mcg/actuation Mist (Tiotropium bromide) ..... 2 puff as directed once a day Albuterol Sulfate 2.5 Mg/3 Ml (0.083 %) Solution For Nebulization (Albuterol sulfate) Albuterol Sulfate 90 Mcg/actuation Hfa Aerosol Inhaler (Albuterol sulfate) Pamela Joshicolin EUBANKS Cardiology: T he patient is using CPAP on a regular basis. The patient has been benefiting from therapy and should continue use. C ontinues to follow up with ENT at [facility] for HELDER workup. Pamela Pérez EUBANKS Cardiology: L abs per PCP. C urrently not on med RX Pamela Campmaite EUBANKS Cardiology: B P today: 134/94 P rior BP: 140/91 (09/09/2023) Her updated medication list for this problem includes: Amlodipine 10 Mg Tablet (Amlodipine) ..... Take one tablet by mouth every day Losartan 50 Mg Tablet (Losartan) ..... Take 1 tablet by mouth once a day take with evening medications Aayushrhea Campmaite EUBANKS Cardiology: H er updated medication list for this problem includes: Symbicort 160-4.5 Mcg/actuation Hfa Aerosol Inhaler (Budesonide-formoterol) Albuterol Sulfate 2.5 Mg/3 Ml (0.083 %) Solution For Nebulization (Albuterol sulfate) Albuterol Sulfate 90 Mcg/actuation Hfa Aerosol Inhaler (Albuterol sulfate) Montelukast 10 Mg Tablet (Montelukast) Michelle Freitas MD Cardiology: Link tsang CP will arrange for her to have treadmill stress test. Summary and Interpretation 1 . Normal exercise capacity 2. Normal hemodynamic response to exercise [address] or T changes 4. No significant arrhythmias occasional PVCs noted during stress 5 . There is no evidence for exercise-induced myocardial ischemia Michelle Freitas MD Cardiology:Getting w orked up with ENT at [facility] for HELDER, may end up getting [facility]. Michelle Freitas MD Cardiology:We will i ncrease Losartan to 50mg Documented BP reading is from patient's home BP readings due to white coat hypertension. Will try additional med losartan 25 mg to see if we can bring down BP. Has benefitted from sodium reduction in diet. This will also help with valve disease and diabetes. H er updated medication list for this problem includes: Losartan 25 Mg Tablet (Losartan) ..... Take 1 tablet by mouth once a day take with evening medications Amlodipine 10 Mg Tablet (Amlodipine) Michelle Freitas MD Cardiology: N ot on med RX Michelle Freitas MD Cardiology:Will try additional med losartan 25 mg to see if we can bring down BP. Has benefitted from sodium reduction in diet. This will also help with valve disease and diabetes. H er updated medication list for this problem includes: Losartan 25 Mg Tablet (Losartan) ..... Take 1 tablet by mouth once a day take with evening medications Amlodipine 10 Mg Tablet (Amlodipine) BP today: 145/93 P rior BP: 120/70 (05/09/2023) Michelle Freitas MD Cardiology: S evere HELDER intermiditently using CPAP. Also sees ENT may require surgical management at [facility] Michelle Freitas MD Cardiology:Conclusio ns: Moderate airway obstruction and a response to bronchodilators indicates asthma. The absence of overinflation suggests a r estrictive process such as pleural or chest wall disease. P ulmonary Function Diagnosis: M oderate Obstructive Airways Disease -Asthmatic Type Michelle Freitas MD Cardiology:Recent paul rgery right hand done at [facility] by Shun Sy planned for getting left hand done as well Michelle Freitas MD Cardiology:Most like ly associated with obesity and sleep apnea check echo and PFT Michelle Freitas MD Cardiology:Severe OS A intermiditently using CPAP. Also sees ENT may require surgical management at [facility] Michelle Freitas MD Cardiology: H er updated medication list for this problem includes: Amlodipine 10 Mg Tablet (Amlodipine) BP today: 120/70 Michelle Freitas MD Cardiology:Reproudac ble CP will arrange for her to have treadmill stress test. Michelle Freitas MD Cardiology:Not on med RX Michelle Freitas MD Date Name PROBNP, N TERMINAL HEMOGLOBIN A1c LIPID PANEL COMPREHENSIVE METABO LIC PANEL, W/EGFR DLCO - 87805 FRC - 00445 FVC - 80688 Stress Routine Complete Echo HISTORY OF PROCEDURES Procedure Date Procedure Name Provider Procedure Notes S tatus Complex e/m visit add on Michelle Freitas MD completed EKG Michelle Freitas MD compl eted EKG Michelle Freitas MD compl eted EKG Michelle Freitas MD compl eted EKG Michelle Freitas MD compl eted Spirometry Michelle Freitas MD compl eted FVC / MVV with bronchodilator - 18836 Michelle Freitas MD completed FRC - 99830 Michelle Freitas MD comp leted SpO2 w/o 6min walk/titration Michelle Freitas MD completed SVC - 50845 Michelle Freitas MD comp leted DLCO - 88603 Michelle Freitas MD com pleted EKG Michelle Freitas MD compl eted
--- OUTSIDE RECORDS SUMMARY | 2025-01-08 15:04 | XMS_ITS | Clinical Summary ---
Author Organization [facility] Address [address] [place] [address] Care Team Providers Care Real Estate Executive Assistant Name Role Phone Sakshi Vasquez NP Primary Care Provider [phone] Allergies No known active allergies Medications cephalexin (KEFLEX) 500 mg capsuleIndicati ons:Urinary Tract/Genitouri nary Infection Take 1 capsule (500 mg total) by mouth 2 (two) times a day 14 capsule 09/02/2021 Active Medical History Medical History Date Comments Asthma Hypertension Social History Tobacco Use Types Packs/Day Years Used Date Smoking Tobacco: Never Alcohol Use Standard Drinks/Week Comments Defer 0 (1 standard drink = 0.6 oz pur e alcohol) Personal Safety Answer Date Recorded Getting School Help Needed Not on file 10/31 Comments No Sex and Gender Information Value Date Recorded Sex Assigned at Not on file 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 Gender Identity Not on file Sexual Orientation Not on file Obstetrics History Last Filed Vital Signs Vital Sign Reading Time Taken Comments Blood Pressure 141/89 06/06/2023 1:42 PM CDT Pulse 103 06/06/2023 1:42 PM CDT Temperature 36.9 C (98.4 F) 06/06/2023 10:28 AM CDT Respiratory Rate 18 06/06/2023 1:42 PM CDT Oxygen Saturation 98% 06/06/2023 1:42 PM CDT Inhaled Oxygen Concentration - - Weight 115.4 kg (254 lb 6.6 oz) 021 10:19 AM CDT Height 157.5 cm (5' 2 ) 09/02/2021 10:1 9 AM CDT Body Mass Index 46.53 09/02/2021 10:19 AM CDT Plan of Treatment Health Maintenance Due Date Last Done Comments Depression Screening 1986 Hepatitis C Screening 1986 DTaP/Tdap/Td Vaccine (6 - Tdap) 1997 08/27/1993, 04/23/1988, 09/11/1987, Additional history exists Varicella Vaccines (1 of 2 - 13+ 2-dose series) 1999 Regular Well Visit/Exam 18-64 2004 Pneumococcal vaccine <65 (1 of 2 - PCV) 2005 Covid-19 Vaccine ( season) 2024 11/10/2021, 10/21/2021, 10/04/2021, Additional history exists Influenza Vaccine (#1) 2024 10/04/2022, 2004 Hepatitis B Screening Completed 03/05/1997 , 11/20/1996, 10/16/1996 HPV Vaccines Aged Out No longer eligi ble based on patient's age to complete this topic Insurance [facility] Care Teams Real Estate Executive Assistant Relationship Specialty Start Date End Date Sakshi Vasquez NP PCP - General Nurse Practitioner 06/06/23
--- OUTSIDE RECORDS SUMMARY | 2025-01-08 15:04 | XMS_ITS | Clinical Summary ---
Author Organization [facility] [employer] Address [address] [place] [address] Care Team Providers Care Community Development Planner Name Role Phone Ann Adela Neal ORTEGA Primary Care Provider [phone] Source Comments [facility],non-owned Affiliates and Associated Physician Practices is amultiple site organization consisting of ambulatory clinics and hospital sitesin [place], [place], [place] and [place]. This disclosure is being madepursuant to the Care Everywhere program and may not contain all information available regarding this patient. Last updated 18.[facility] [employer] Allergies Active Allergy Reactions Criticality Noted Date [...] fluticasone propionate (Flonase) 50 MCG/ACT nasal spray [place] 1 (one) spray into each nostril 2 times daily 12/14/2022 Active vitamin D, ergocalciferol, (Drisdol) 1.25 MG (22387 UT) capsule Take 1 (one) capsule by [...] Active azelastine (Astelin) 0.1 % nasal spray [place] 1 (one) spray into each nostril 2 [...] Date Upper respiratory infection 03/21/2023 09/06/2023 09/20/2023 Encounters Date Type Department Care Team Description 12/10/2024 12:25 PM SAFETY PERSON - 12/10/2024 11:59 PM SAFETY PERSON Hospital Encounter [facility] [address] [place] [phone] Chencho Kingston MD Anesthesiology Discharge Disposition: Home or Self Care 12/10/2024 Travel 11/29/2024 Travel 11/15/2024 1:15 PM SAFETY PERSON Office Visit [facility] [address] [place] [phone] Ottoniel Dang MD Allergic rhinitis due to pollen, unspecified seasonality (Primary Dx); HELDER (obstructive sleep apnea); Nasal turbinate hypertrophy 11/15/2024 Telephone [facility] [address] [place] [phone] Ottoniel Dang MD Immunotherapy (Vial count) 11/15/2024 Travel 11/13/2024 Orders Only [facility] [address] [place] [phone] Chencho Kingston MD Muscle pain ; Trigger point of thoracic region 11/13/2024 Telephone [facility] [address] [place] [phone] Nelly Germain, RN Follow-up 10/17/2024 Travel from Last 3 Months Immunizations Name Administration Dates Next Due Covid Moderna primary monova lent 12+ yr 0.5mL 11/10/2021,10/21/2021,10/04/2021, [...] Comments Blood Pressure 132/72 12/10/2024 12:56 PM SAFETY PERSON Pulse 91 12/10/2024 12:56 PM SAFETY PERSON Temperature 36.7 C (98 F) 12/10/2024 12:56 PM SAFETY PERSON Respiratory Rate 18 12/10/2024 12:56 PM SAFETY PERSON Oxygen Saturation 96% 07/31/2024 8:35 AM CDT Inhaled Oxygen Concentration - - Weight 123.8 kg (273 lb) 11/15/2024 1:10 PM SAFETY PERSON Height 157.5 cm (5' 2 ) 11/15/2024 1:10 PM SAFETY PERSON Body Mass Index 49.93 11/15/2024 1:10 PM SAFETY PERSON Plan of Treatment Upcoming Encounters Date Type Department Care Team (Late st Contact Info) Description 01/11/2025 11:30 AM SAFETY PERSON Office Visit [facility] - [facility] [address] [place] [phone] Twila Oshea PA-C [address] [facility] [place] [phone] 11/19/2025 10:30 AM SAFETY PERSON Office Visit [facility] [address] [place] [phone] Ottoniel Dang MD [facility] [place] [address] Health Maintenance Due Date Last Done Comments DTAP/TDAP/TD VACCINES (6 - Tdap) 1997 08/27/1993, 04/23/1988, 09/11/1987, Additional history exists HIV SCREENING 2001 HEPATITIS C SCREENING 08/06/2004 PNEUMOCOCCAL VACCINE (1 of 2 - PCV) 2005 COVID-19 VACCINE ( season) 2024 11/10/2021, 10/21/2021, 10/04/2021, Additional history exists INFLUENZA VACCINE (#1) 2024 , 10/04/2022, 10/18/2005, Additional history exists PAP SMEAR 09/02/2024 09/02/2021 DEPRESSION SCREENING 11/14/2024 09/13/2023, 12/27/19 23 ZOSTER VACCINE (1 of 2) 2036 HIB VACCINE Completed 11/23/1988 HEPATITIS B VACCINE Completed 03/05/1997, 11/20/1996, 10/16/1996 HPV VACCINE Aged Out No longer eligi ble based on patient's age to complete this topic MENINGOCOCCAL (Group B) VACCINE Aged Out No longer eligible based on patient's age to complete this topic MENINGOCOCCAL VACCINE Aged Out No red pacheco eligible based on patient's age to complete this topic Procedures Procedure Name Priority Date/Time Associated Diagnosis Comments PAIN MANAGEMENT PROCEDURE TIME Routine 12/10/2024 1:43 PM SAFETY PERSON Muscle pain from Last 3 Months Results * Pain Management Procedure Time (12/10/2024 1:43 PM SAFETY PERSON) Anatomical Region Laterality Modality Radio Fluoroscop y Narrative 12/10/2024 1:20 PM SAFETY PERSON Chencho Kingston MD 12/10/2024 1:49 PM 12/10/2024 [...] on how to reach the clinic or riveting machine operator tape control physician at anytime for questions or complaints. Estimated blood loss: Minimal Chencho Kingston MD DIAGNOSTIC ALF G ORDERABLES from Last 3 Months Advance Directives * Full Code (Latest Code Status on File) Date Activated Date Inactivated Comments 07/30/2024 8:13 PM 07/31/2024 11:34 AM Care Teams Community Development Planner Relationship Specialty Start Date End Date Adela Juarez DO [address] [place] [phone] PCP - General Family Medicine 02/28/24
--- OUTSIDE RECORDS SUMMARY | 2025-01-08 15:04 | XMS_ITS | Clinical Summary ---
Author Organization [facility] Address [facility] [place] [address] Care Team Providers Care Helix Coil Winder Name Role Phone Unavailable Primary Care Provider Unavailabl e Social History Tobacco Use Types Packs/Day Years Used Date Smoking Tobacco: Never Assessed Comments Unknown Sex and Gender Information Value Date Recorded Sex Assigned at Not on file Legal Sex Female 4:40 PM CDT Gender Identity Not on file Sexual Orientation Not on file Plan of Treatment Health Maintenance Due Date Last Done Comments Cervical Cancer Screening Pa p Smear (Age 30 to 64) Every 3 Years 1986 Annual Physical 1989 Hepatitis C 2004 DTaP, Tdap and Td Vaccines ( 1 - Tdap) 2005 Hepatitis B Vaccines (1 of 3 - 19+ 3-dose series) 2005 Cervical Cancer Screening Pa p with HPV Testing (Age 30 to 64) Every 5 Years 2016 Cervical Cancer Screening with HPV 2016 COVID-19 Vaccine (2023-2 5 season) 2024 Influenza Adult (#1) 2024 HPV Vaccines Aged Out No longer eligi ble based on patient's age to complete this topic Meningococcal B Vaccine Aged Out No l onger eligible based on patient's age to complete this topic Meningococcal Vaccine Aged Out No red pacheco eligible based on patient's age to complete this topic Pneumococcal Vaccine: Pediat rics (0 to 5 Years) and At-Risk Patients (6 to 64 Years) Aged Out No longer eligible b ased on patient's age to complete this topic RSV Immunizations Under 20 Months Aged Out No longer eligible based on patient's age to complete this topic
--- OUTSIDE RECORDS SUMMARY | 2025-01-08 15:04 | XMS_ITS | Referral Summary ---
Author Organization [facility] Address [address] [place] [address] Care Team Providers Care Corrections Officer Name Role Phone Sakshi Vasquez NP Primary Care Provider [phone] Allergies No known active allergies Medications cephalexin (KEFLEX) 500 mg capsuleIndicati ons:Urinary Tract/Genitouri nary Infection Take 1 capsule (500 mg total) by mouth 2 (two) times a day 14 capsule 09/02/2021 Active Social History Tobacco Use Types Packs/Day Years Used Date Smoking Tobacco: Never Alcohol Use Standard Drinks/Week Comments Defer 0 (1 standard drink = 0.6 oz pur e alcohol) Personal Safety Answer Date Recorded Getting School Help Needed Not on file 10/31 Comments No Sex and Gender Information Value Date Recorded Sex Assigned at Not on file Legal Sex Female 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
--- OUTSIDE RECORDS SUMMARY | 2025-01-08 15:04 | XMS_ITS | Patient Health Summary ---
Author Organization [facility] Address [address] [place] [address] Care Team Providers Care Import Export Coordinator Name Role Phone AnnAdela Neal ORTEGA Primary Care Provider [phone] Note from [facility],non-owned Affiliates and Associated Physician Practices is amultiple site organization consisting of ambulatory clinics and hospital sitesin [place], [place], [place] and [place]. This disclosure is being madepursuant to the Care Everywhere program and may not contain all information available regarding this patient. Last updated 18.[facility] Allergies * Shellfish Allergy(Itching) Medications * Be aware that medications may not be up to date on this document. Alwaysverify current medications with the patient. * modafinil (Provigil) 200 MG tablet(Started 12/20/2022) Take 1 (one) tablet by mouth 2 times daily * fluticasone propionate (Flonase) 50 MCG/ACT nasal spray(Started 12/14/2022) Rosalia 1 (one) spray into each nostril 2 times daily * vitamin D, ergocalciferol, (Drisdol) 1.25 MG (15542 UT) capsule(Started 11/21/2022) Take 1 (one) capsule by mouth every 7 days * Symbicort 160-4.5 MCG/ACT inhaler(Started 12/14/2022) Inhale 2 (two) puffs by mouth 2 times daily * benzonatate (Tessalon) 200 MG capsule(Started 12/15/2022) Take 1 (one) capsule by mouth 3 times daily as needed for cough * amLODIPine (Norvasc) 10 MG tablet(Started 10/10/2022) Take 1 (one) tablet by mouth once daily * albuterol (Proventil;Ventolin) (2.5 MG/3ML) 0.083% nebulizer solution(Started 11/15/2022) Inhale 2.5 (two and one-half) mg by mouth as needed * escitalopram (Lexapro) 20 MG tablet(Started 04/22/2023) Take 1 (one) tablet by mouth once daily * cyanocobalamin (Vitamin B-12) injection Inject 0.1 mcg into muscle every 30 days * azelastine (Astelin) 0.1 % nasal spray(Started 05/12/2023) Rosalia 1 (one) spray into each nostril 2 times daily 4 refills by 05/11/2024 * cetirizine (ZyrTEC) 10 MG tablet(Started 05/12/2023) Take 1 (one) tablet by mouth once daily 4 refills by 05/11/2024 * montelukast (Singulair) 10 MG tablet Take 1 (one) tablet by mouth once daily * albuterol HFA (Proventil; Ventolin; Proair) 108 (90 Base) MCG/ACT inhaler (Started 05/22/2023) Inhale 1 (one) puff by mouth as needed * famotidine (Pepcid) 40 MG tablet(Started 08/25/2023) * pantoprazole (Protonix) 40 MG packet(Started 08/25/2023) * losartan (Cozaar) 50 MG tablet(Started 09/09/2023) Take 1 (one) tablet by mouth once daily * EPINEPHrine (Epipen) 0.3 MG/0.3ML auto-injector pen(Started 11/01/2023) Inject 0.3 mL into muscle once as needed for Anaphylaxis * cyclobenzaprine (Flexeril) 10 MG tablet(Started 01/17/2024) Take 1 (one) tablet by mouth 3 times daily as needed for Muscle Spasms 3 refills by 01/16/2025 * spironolactone (Aldactone) 50 MG tablet(Started 01/24/2024) Take 1 (one) tablet by mouth 2 times daily * Spiriva Respimat 1.25 MCG/ACT AERS(Started 02/02/2024) Inhale 2 puffs by mouth every 24 hours * topiramate (Topamax) 100 MG tablet(Started 04/04/2024) Take 1 (one) tablet by mouth once daily for 7 days, THEN 1.5 (one and one-half) tablets once daily for 7 days, THEN 1 (one) tablet 2 times daily. 2 refills by 04/04/2025 * Blood Glucose Monitoring Suppl (Blood Glucose Monitor System) w/Device KIT (Started 05/01/2024) Use 1 Each as directed check blood sugar three times daily * lancets(Started 05/01/2024) Use 1 (one) Each 3 times daily 11 refills by 05/01/2025 * blood glucose test strip(Started 05/01/2024) Use 1 (one) strip 3 times daily 2 refills by 05/01/2025 * SYRINGE-NEEDLE, DISP, 3 ML 25G X 5/8 3 ML MISC(Started 06/05/2024) As directed for immunotherapy 2 refills by 06/05/2025 * Sodium Oxybate ER (Lumryz) 4.5 g PACK Take 4.5 mg by mouth at bedtime * oxyCODONE, immediate release, (Roxicodone) 5 MG tablet(Started 07/31/2024) Take 1 (one) tablet by mouth every 4 hours as needed * acetaminophen (Tylenol) 325 MG tablet(Started 07/31/2024) Take 2 (two) tablets by mouth every 6 hours as needed for Fever or Pain Maximum allowable Acetaminophen amount = 4 Grams (4000 mg) / 24 hours. * ibuprofen (Motrin) 600 MG tablet(Started 07/31/2024) Take 1 (one) tablet by mouth every 6 hours as needed for Pain * busPIRone (Buspar) 7.5 MG tablet(Started 10/15/2024) Take 1 (one) tablet by mouth 2 times daily * cyanocobalamin (Vitamin B-12) injection(Started 10/15/2024) Inject 1,000 (one thousand) mcg subcutaneously every 30 days Active Problems Problem Noted Date Diagnosed Date Primary obstructive [...] 12/27/2021 09/06/2023 Supervision of other high-risk 013 Resolved Problems Problem Noted Date Diagnosed Date Resolved Date Upper respiratory infection 03/21/2023 09/06/2023 09/20/2023 Immunizations * Covid Moderna primary monovalent 12+ yr 0.5mL(Given 11/10/2021, 10/21/2021, 10/04/2021, 09/23/2021) * DTP, HISTORIC VACCINE(Given 08/27/1993, 04/23/1988, 09/11/1987, 07/06/1987, 06/05/1987, 04/03/1987, 01/30/1987) * FLU, HISTORIC VACCINE(Given 10/18/2005) * HEP B VACCINE, PED/ADOL(Given 03/05/1997, 11/20/1996, 10/16/1996) * HIB VACCINE(Given 11/23/1988) * INFLUENZA VACCINE(Given 10/18/2005) * INFLUENZA VACCINE, QUADR. (FLUZONE; FLULAVAL; FLUARIX; AFLURIA QUADRIVALENT; 6MO+), 0.5 ML (IIV4)(Given 08/25/2023, 10/04/2022) * MMR VACCINE(Given 08/27/1993, 01/07/1988) * POLIO OPV(Given 08/27/1993, 04/23/1988, 06/05/1987, 04/03/1987, 01/30/1987) Social History Tobacco Use Types Packs/Day Years [...] Comments Blood Pressure 132/72 12/10/2024 12:56 PM ACQUISITION MARKETING MANAGER Pulse 91 12/10/2024 12:56 PM ACQUISITION MARKETING MANAGER Temperature 36.7 C (98 F) 12/10/2024 12:56 PM ACQUISITION MARKETING MANAGER Respiratory Rate 18 12/10/2024 12:56 PM ACQUISITION MARKETING MANAGER Oxygen Saturation 96% 07/31/2024 8:35 AM CDT Inhaled Oxygen Concentration - - Weight 123.8 kg (273 lb) 11/15/2024 1:10 PM ACQUISITION MARKETING MANAGER Height 157.5 cm (5' 2 ) 11/15/2024 1:10 PM ACQUISITION MARKETING MANAGER Body Mass Index 49.93 11/15/2024 1:10 PM ACQUISITION MARKETING MANAGER Procedures * PAIN MANAGEMENT PROCEDURE TIME(Performed 12/10/2024) Performed for Muscle pain * ENDOTRACHEAL TUBE NOTE(Performed 07/30/2024) * RI HYOID MYOTOMY AND SUSPENSION(Performed 07/30/2024) Performed for Obstructive sleep apnea, Adenoid hypertrophy, Nasal turbinate hypertrophy * RI DISE DYN EVAL SLEEP DISORDERED BREATHING FLX DX(Performed 07/30/2024) Performed for Obstructive sleep apnea, Adenoid hypertrophy, Nasal turbinate hypertrophy * PAIN MANAGEMENT PROCEDURE TIME(Performed 07/27/2024) Performed for Muscle pain * MRI THORACIC SPINE WO CONTRAST(Performed 07/13/2024) Performed for Chronic bilateral thoracic back pain * PAIN MANAGEMENT PROCEDURE TIME(Performed 05/07/2024) Performed for Lumbosacral spondylosis without myelopathy * HEMOGLOBIN A1C(Performed 04/28/2024) * TSH REFLEX FREE T4(Performed 04/28/2024) * CBC W/O DIFFERENTIAL(Performed 04/28/2024) * COMPREHENSIVE METABOLIC PANEL(Performed 04/28/2024) * LIPID PROFILE(Performed 04/28/2024) * INSULIN LEVEL FASTING(Performed 04/28/2024) Performed for Class 3 severe obesity with serious comorbidity and body mass index (BMI) of 50.0 to 59.9 in adult, unspecified obesity type (HCC) * PAIN MANAGEMENT PROCEDURE TIME(Performed 04/02/2024) Performed for Lumbosacral spondylosis without myelopathy * PAIN MANAGEMENT PROCEDURE TIME(Performed 03/05/2024) Performed for Lumbosacral spondylosis without myelopathy * PAIN MANAGEMENT PROCEDURE TIME(Performed 01/23/2024) Performed for Lumbosacral spondylosis without myelopathy * MRI LUMBAR SPINE WO CONTRAST(Performed 01/06/2024) Performed for Chronic bilateral low back pain, unspecified whether sciatica present * XR LUMBAR SPINE 2 OR 3VW(Performed 11/22/2023) Performed for Chronic bilateral low back pain, unspecified whether sciatica present * XR THORACIC SPINE 2VW(Performed 11/22/2023) Performed for Chronic bilateral thoracic back pain * XR CERVICAL SPINE 2 OR 3VW(Performed 11/22/2023) Performed for Neck pain * RI NASAL ENDOSCOPY,DX(Performed 10/20/2023) Performed for HELDER (obstructive sleep apnea), Nasal turbinate hypertrophy, Allergic rhinitis, unspecified seasonality, unspecified trigger * ENDOTRACHEAL TUBE NOTE(Performed 09/07/2023) * RI EXCISION TURBINATE,SUBMUCOUS(Performed 09/07/2023) Performed for Obstructive sleep apnea, Nasal turbinate hypertrophy * MRI THORACIC SPINE WO CONTRAST(Performed 06/21/2023) Performed for Pain in thoracic spine * MRI CERVICAL SPINE WO CONTRAST(Performed 06/21/2023) Performed for Cervicalgia * RI LARYNGOSCOPY,FLEX FIBER,DIAGNOSTIC(Performed 05/12/2023) Performed for HELDER (obstructive sleep apnea) * CULTURE URINE(Performed 04/18/2014) * LAB RESULTS ORDER(Performed 01/24/2013) * LAB RESULTS ORDER(Performed 01/17/2013) * SONOGRAM - COMPLETE(Performed 01/09/2013) * TOXOPLASMA ANTIBODY IGG/IGM PANEL(Performed 11/28/2012) * CYTOMEGALOVIRUS ANTIBODY IGG/IGM BLOOD(Performed 11/28/2012) * SONOGRAM - COMPLETE(Performed 11/28/2012) * SONOGRAM - COMPLETE(Performed 10/24/2012) Results * Pain Management Procedure Time (12/10/2024 1:43 PM ACQUISITION MARKETING MANAGER) Only the most recent of6 resultswithin the time period is included. Anatomical Region Laterality Modality Radio Fluoroscop y Narrative 12/10/2024 1:20 PM Chencho Castellano MD 12/10/2024 1:49 PM 12/10/2024 Trigger Point [...] on how to reach the clinic or millinery salesperson physician at anytime for questions or complaints. Estimated blood loss: Minimal Chencho Kingston MD DIAGNOSTIC ALF G ORDERABLES * ETT LINE PERFORMABLE (07/30/2024 5:23 PM CDT) Narrative Stacey Cardoza MD - 07/30/2024 5:23 PM CDT Stacey Cardoza MD 07/30/2024 5:24 PM Endotracheal Tube Placement: Patient Location: OR. Intubation Event Date/Time: 07/30/2024 5:16 PM Procedure: intubation ([id number]) Procedure Section: Sedation: under general anesthesia. Indications for Airway Management: anesthesia Induction: standard IV Patient Position: sniffing and supine Mask Ventilation: difficult and required 2 people (2 handed). Blade Type: Video Blade Size: 3 Laryngoscopy View: grade 1 (full cords) Intubation Adjuncts: stylet and video laryngoscope Tube: endotracheal tube Placement: oral Tube type: cuff - inflated Tube Size (MM): 7 Depth of Insertion (CM): 21 Measured From: teeth Cuff volume (mL): 8 Cuff Inflated With: air Number of Attempts: 1. Placement Verified By: direct visualization, chest auscultation, CO2 monitor and bilateral breath sounds Tube secured with: adhesive tape. Dentition unchanged? Yes Difficult Airway? No. Procedure Start Time: 07/30/2024 5:16 PM. Staff Section Anesthesia Provider: Stacey Cardoza MD Provider #1: Ashish Valerio MD, Performed the procedure. Ashish Coulter MD GENERAL ANESTHESI A ORDERABLES * MRI Thoracic Spine Wo Contrast (07/13/2024 4:50 PM CDT) Only the most recent of2 resultswithin the time period is included. Anatomical Region Laterality Modality Chest Magnetic Resonan ce 07/13/2024 4:57 PM CDT Impressions 07/13/2024 5:01 PM CDT IMPRESSION: Mild disc bulging throughout the lower thoracic spine, similar to the old exam and not causing any deformity of the cord or significant stenosis. Please note it is somewhat difficult to compare the 2 exams as the old examination was performed on a 3 Chantell magnet and the current exam performed on a 1 Chantell open magnet which does not have the same level of resolution. > Interpreting Provider: Brian Treviño MD on 07/13/2024 5:01 PM Narrative 07/13/2024 5:01 PM CDT Procedure: MRI THORACIC SPINE WO CONTRAST Exam Date: 07/13/2024 4:50 PM Location: [facility] MRI thoracic spine without contrast INDICATION: M54.6: Pain in thoracic spine G89.29: Other chronic pain TECHNIQUE: MR examination of the thoracic spine was performed utilizing multiple pulse sequences in multiple planes without contrast. FINDINGS: The study is compared to radiographs from November 2023 as well as an old exam from June 2023 from [facility]. The vertebral bodies are normally aligned. There is no evidence of fracture or subluxation. The vertebral bodies are of normal height. There is no marrow replacement process. There is some desiccation of the intervertebral discs throughout the thoracic spine. There is minimal disc bulging throughout the lower thoracic spine from T5-6 through T11-12. These do not cause any significant stenosis nor any cord deformity. There is no epidural mass. The neural foramina are patent. Procedure Note Brian Treviño MD - 07/13/2024 Procedure: MRI THORACIC SPINE WO CONTRAST Exam Date: 07/13/2024 4:50 PM Location: [facility] MRI thoracic spine without contrast INDICATION: M54.6: Pain in thoracic spine G89.29: Other chronic pain TECHNIQUE: MR examination of the thoracic spine was performed utilizing multiple pulse sequences in multiple planes without contrast. FINDINGS: The study is compared to radiographs from November 2023 as wellas an old exam from June 2023 from [facility]. The vertebral bodies are normally aligned. There is no evidence of fracture or subluxation. The vertebral bodies are of normal height.There is no marrow replacement process. There is some desiccation of the intervertebral discs throughout the thoracic spine. There is minimaldisc bulging throughout the lower thoracic spine from T5-6 through T11-12.These do not cause any significant stenosis nor any cord deformity. There isno epidural mass. The neural foramina are patent. IMPRESSION: Mild disc bulging throughout the lower thoracic spine, similar to theold exam and not causing any deformity of the cord or significant stenosis. Please note it is somewhat difficult to compare the 2 exams as the old examination was performed on a 3 Chantell magnet and the current exam performed on a 1 Chantell open magnet which does not have the same level of resolution. > Interpreting Provider: Brian Treviño MD on 07/13/2024 5:01 PM Giulia Eng WOUND CARE TECHNICIAN-CAR DEALER MR ORDERABLES * (ABNORMAL) INSULIN LEVEL FASTING (04/28/2024 9:08 AM CDT) Insulin 21.2(H) uIU/mL [facility] Comment: Reference Range < or = 18.4 Risk: Optimal < or = 18.4 Moderate NA High >18.4 Adult cardiovascular event risk category cut points (optimal, moderate, high) are based on Insulin Reference Interval studies performed at [facility] in 2021. Test Performed at: [facility] [id number] [place] [address] ADAMARIS CAICEDO MD Blood BLOOD SPECIMEN / Unknown 04/28/2024 9:08 AM CDT 04/28/2024 9:10 AM CDT Twila Oshea PA-C LAB - CHEMISTRY ORD ERABLES Performing Organization Address [facility] Co de Phone Number [facility] [address] [place] [address] * TSH REFLEX FREE T4 (04/28/2024 9:08 AM CDT) TSH with Reflex FT4 1.56 mIU/L [facility] Comment: Reference Range > or = 20 Years 0.40-4.50 Ranges First trimester 0.26-2.66 Second trimester 0.55-2.73 Third trimester 0.43-2.91 Test Performed at: [facility] [address] [place] [address] ADAMARIS CAICEDO MD 04/28/2024 9:08 AM CDT 04/28/2024 9:10 AM CDT Twila Oshea PA-C LAB - CHEMISTRY ORD ERABLES Performing Organization Address [facility] Co de Phone Number [facility] [address] [place] [address] * (ABNORMAL) HEMOGLOBIN A1C (04/28/2024 9:08 AM CDT) Hemoglobin A1c 5.7(H) <5.7 % of total Hgb [facility] Comment: For someone without known diabetes, a hemoglobin A1c value between 5.7% and 6.4% is consistent with prediabetes and should be confirmed with a follow-up test. For someone with known diabetes, a value <7% indicates that their diabetes is well controlled. A1c targets should be individualized based on duration of diabetes, age, comorbid conditions, and other considerations. This assay result is consistent with an increased risk of diabetes. Currently, no consensus exists regarding use of hemoglobin A1c for diagnosis of diabetes for children. This test was performed on the Corby monica c503 platform. Effective 01/30/24, a change in test platforms from the [employer] to the Corby monica c503 may have shifted HbA1c results compared to historical results. Based on laboratory validation testing conducted at [facility], the Corby platform relative to the Greer platform had an average increase in HbA1c value of < or = 0.3%. This difference is within accepted variability established by the National Glycohemoglobin Standardization Program. Note that not all individuals will have had a shift in their results and direct comparisons between historical and current results for testing conducted on different platforms is not recommended. REPORT COMMENT: FASTING:YES Test Performed at: [facility] [address] ADAMARIS CAICEDO MD 04/28/2024 9:08 AM CDT 04/28/2024 9:10 AM CDT Twila Oshea PA-C LAB - CHEMISTRY ORD ERABLES [address] [address] * (ABNORMAL) CBC W/O DIFFERENTIAL (04/28/2024 9:08 AM CDT) White Blood Cell Count 9.5 3.8 - 10.8 Thousand/u L [facility] RBC 4.70 3.80 - 5.10 Million/uL [facility] Hemoglobin 14.4 11.7 - 15.5 g/dL [facility] Hematocrit 45.3(H) 35.0 - 45.0 % [facility] MCV 96.4 80.0 - 100.0 fL [facility] MCH 30.6 27.0 - 33.0 pg [facility] MCHC 31.8(L) 32.0 - 36.0 g/dL [facility] RDW 13.0 11.0 - 15.0 % [facility] Platelet Count 261 140 - 400 Thousand/u L [facility] MPV 9.6 7.5 - 12.5 fL [facility] Comment: Test Performed at: [facility] [place] [address] [place] [address] ADAMARIS CAICEDO MD 04/28/2024 9:08 AM CDT 04/28/2024 9:10 AM CDT Twila Oshea PA-C LAB - HEMATOLOGY OR DERABLES Performing Organization Address [facility] Co de Phone Number [facility] [address] [place] [id number] * COMPREHENSIVE METABOLIC PANEL (04/28/2024 9:08 AM CDT) Glucose 85 65 - 99 mg/dL [facility] Comment: Fasting reference interval BUN 12 7 - 25 mg/dL [facility] Creatinine 0.73 0.50 - 0.97 mg/dL [facility] eGFR by Cystatin C 109 > OR = 60 mL/min/1. 73m2 [facility] BUN/Creatinine Ratio SEE NOTE: 6 - (calc) [facility] Comment: Not Reported: BUN and Creatinine are within reference range. Sodium 140 135 - 146 mmol/L [facility] Potassium 4.7 3.5 - 5.3 mmol/L [facility] Chloride 110 98 - 110 mmol/L [facility] CO2 20 20 - 32 mmol/L [facility] Calcium 9.0 8.6 - 10.2 mg/dL [facility] Protein Total 6.6 6.1 - 8.1 g/dL [facility] Albumin 4.1 3.6 - 5.1 g/dL [facility] Globulin Total 2.5 1.9 - 3.7 g/dL (calc) [facility] Albumin/Globulin Ratio 1.6 1.0 - 2.5 (calc) [facility] Bilirubin Total 0.6 0.2 - 1.2 mg/dL [facility] Alkaline Phosphatase 62 31 - 125 U/L [facility] AST 12 10 - 30 U/L [facility] ALT 14 6 - 29 U/L [facility] Comment: Test Performed at: [facility] [address] [address] ADAMARIS CAICEDO MD 04/28/2024 9:08 AM CDT 04/28/2024 9:10 AM CDT Twila Oshea PA-C LAB - CHEMISTRY ORD ERABLES Performing Organization Address [facility] Co de Phone Number [facility] [address] [place] [address] * (ABNORMAL) LIPID PROFILE (04/28/2024 9:08 AM CDT) Cholesterol 212(H) <200 mg/dL [facility] HDL Cholesterol 51 > OR = 50 mg/dL [facility] Triglycerides 112 <150 mg/dL [facility] LDL Calculated 138(H) mg/dL (calc) [facility] Comment: Reference range: <100 Desirable range <100 mg/dL for primary prevention; <70 mg/dL for patients with CHD or diabetic patients with > or = 2 CHD risk factors. LDL-C is now calculated using the Drew-Mendez calculation, which is a validated novel method providing better accuracy than the Friedewald equation in the estimation of LDL-C. Drew SS et al. JUNE. 2013;310(19): 6669-3885 (http://education.Warply.Channel M/faq/INT895) CHOL/HDLC RATIO 4.2 <5.0 (calc) [facility] Non HDL Cholesterol 161(H) <130 mg/dL (calc) [facility] Comment: For patients with diabetes plus 1 major ASCVD risk factor, treating to a non-HDL-C goal of <100 mg/dL (LDL-C of <70 mg/dL) is considered a therapeutic option. Test Performed at: [facility] [address] [place] [address] ADAMARIS CAICEDO MD 04/28/2024 9:08 AM CDT 04/28/2024 9:10 AM CDT Twila Oshea PA-C LAB - CHEMISTRY ORD ERABLES Performing Organization Address City/State/[facility] Co de Phone Number [facility] [address] [place] [address] * MRI LUMBAR SPINE WO CONTRAST (01/06/2024 9:59 AM ACQUISITION MARKETING MANAGER) Anatomical Region Laterality Modality Spine Magnetic Resonan ce 01/06/2024 10:1 7 AM ACQUISITION MARKETING MANAGER Impressions 01/06/2024 12:13 PM ACQUISITION MARKETING MANAGER IMPRESSION: Unremarkable MRI of the lumbar spine. Edited by Binta Garzon on 01/06/2024 10:27 AM > Interpreting Provider: Bhumi Stein MD on 01/06/2024 12:13 PM Narrative 01/06/2024 12:13 PM ACQUISITION MARKETING MANAGER PROCEDURE: MRI LUMBAR SPINE WO CONTRAST DATE/TIME OF EXAM: 01/06/2024 9:59 AM CLINICAL INFORMATION: None relevant/not provided if blank. Indication: M54.50: Low back pain, unspecified G89.29: Other chronic pain Additional History: COMPARISON: None. TECHNIQUE: Lumbar spine MRI was performed without contrast. FINDINGS: Normal curvature of the lumbar spine is maintained. Vertebral body heights are maintained. No marrow edema identified. Conus terminates at L1-L2. Distal cord and conus signal intensity is normal. Intervertebral disc spaces are maintained. No canal or foraminal narrowing seen. Visualized portions of the abdomen and pelvis do not reveal significant mass or lymphadenopathy. Procedure Note Bhumi Stein MD - 01/06/2024 PROCEDURE: MRI LUMBAR SPINE WO CONTRAST DATE/TIME OF EXAM: 01/06/2024 9:59 AM CLINICAL INFORMATION: None relevant/not provided if blank. Indication: M54.50: Low back pain, unspecified G89.29: Other chronic pain Additional History: COMPARISON: None. TECHNIQUE: Lumbar spine MRI was performed without contrast. FINDINGS: Normal curvature of the lumbar spine is maintained. Vertebral bodyheights are maintained. No marrow edema identified. Conus terminates at L1-L2. Distal cord and conus signal intensity is normal. Intervertebral disc spaces are maintained. No canal or foraminal narrowing seen. Visualized portions of the abdomen and pelvis do not reveal significant mass or lymphadenopathy. IMPRESSION: Unremarkable MRI of the lumbar spine. Edited by Binta Garzon on 01/06/2024 10:27 AM > Interpreting Provider: Bhumi Stein MD on 01/06/2024 12:13 PM Chencho Kingston MD MR ORDERABLES * XR LUMBAR SPINE 2 OR 3VW (11/22/2023 10:45 AM ACQUISITION MARKETING MANAGER) Anatomical Region Laterality Modality Spine Radiographic Ju ging 11/22/2023 10:5 1 AM ACQUISITION MARKETING MANAGER Narrative 11/22/2023 11:08 AM ACQUISITION MARKETING MANAGER PROCEDURE: XR LUMBAR SPINE 2 OR 3VW DATE/TIME OF EXAM: 11/22/2023 10:45 AM CLINICAL INFORMATION: None relevant/not provided if blank. Indication: M54.50: Low back pain, unspecified G89.29: Other chronic pain Additional History: FINDINGS/IMPRESSION: The lateral spinal alignment appears normal. The vertebral body heights are normal. No evidence of severe disc space narrowing is noted. There may be some mild facet osteoarthritis at L5-S1. No gross compression deformity is seen. Edited by Peri Powell on 11/22/2023 10:53 AM > Interpreting Provider: Lewis Jefferson MD on 11/22/2023 11:08 AM Procedure Note Lewis Jefferson MD - 11/22/2023 PROCEDURE: XR LUMBAR SPINE 2 OR 3VW DATE/TIME OF EXAM: 11/22/2023 10:45 AM CLINICAL INFORMATION: None relevant/not provided if blank. Indication: M54.50: Low back pain, unspecified G89.29: Other chronic pain Additional History: FINDINGS/IMPRESSION: The lateral spinal alignment appears normal. The vertebral body heightsare normal. No evidence of severe disc space narrowing is noted. There maybe some mild facet osteoarthritis at L5-S1. No gross compression deformityis seen. Edited by Peri Powell on 11/22/2023 10:53 AM > Interpreting Provider: Lewis Jefferson MD on 11/22/2023 11:08 AM Chencho Kingston MD DIAGNOSTIC IMAGIN G ORDERABLES * XR THORACIC SPINE 2VW (11/22/2023 10:45 AM ACQUISITION MARKETING MANAGER) Anatomical Region Laterality Modality Spine Radiographic Ju ging 11/22/2023 11:5 1 AM ACQUISITION MARKETING MANAGER Narrative 11/22/2023 11:52 AM ACQUISITION MARKETING MANAGER Procedure: XR THORACIC SPINE 2VW Exam Date: 11/22/2023 10:45 AM Location: [facility] Indication: M54.6: Pain in thoracic spine G89.29: Other chronic pain Findings/impression: The vertebral bodies are normally aligned. There is no evidence of fracture or subluxation. The vertebral bodies are of normal height. The disc spaces are well-maintained. There is endplate spurring. The pedicles are intact. There is no paravertebral soft tissue mass. There is no acute bony abnormality. > Interpreting Provider: Brian Treviño MD on 11/22/2023 11:52 AM Procedure Note Brian Treviño MD - 11/22/2023 Procedure: XR THORACIC SPINE 2VW Exam Date: 11/22/2023 10:45 AMLocation: [facility] Indication: M54.6: Pain in thoracic spine G89.29: Other chronic pain Findings/impression: The vertebral bodies are normally aligned. There is no evidence of fracture or subluxation. The vertebral bodies are of normal height.The disc spaces are well-maintained. There is endplate spurring. Thepedicles are intact. There is no paravertebral soft tissue mass. There is noacute bony abnormality. > Interpreting Provider: Brian Treviño MD on 11/22/2023 11:52 AM Chencho Kingston MD DIAGNOSTIC IMAGIN G ORDERABLES * XR CERVICAL SPINE 2 OR 3VW (11/22/2023 10:45 AM ACQUISITION MARKETING MANAGER) Anatomical Region Laterality Modality Spine Radiographic Ju ging 11/22/2023 10:4 7 AM ACQUISITION MARKETING MANAGER Narrative 11/22/2023 12:53 PM ACQUISITION MARKETING MANAGER PROCEDURE: XR CERVICAL SPINE 2 OR 3VW DATE/TIME OF EXAM: 11/22/2023 10:45 AM CLINICAL INFORMATION: None relevant/not provided if blank. Indication: M54.2: Cervicalgia Additional History: Findings/impression: Straightening of the lateral spinal alignment appears normal. The prevertebral soft tissues appear normal. No gross compression deformity is seen. The C1-C2 articulation appears normal. > Interpreting Provider: Lewis Jefferson MD on 11/22/2023 12:53 PM Procedure Note Lewis Jefferson MD - 11/22/2023 PROCEDURE: XR CERVICAL SPINE 2 OR 3VW DATE/TIME OF EXAM: 11/22/2023 10:45 AM CLINICAL INFORMATION: None relevant/not provided if blank. Indication: M54.2: Cervicalgia Additional History: Findings/impression: Straightening of the lateral spinal alignmentappears normal. The prevertebral soft tissues appear normal. No grosscompression deformity is seen. The C1-C2 articulation appears normal. > Interpreting Provider: Lewis Jefferson MD on 11/22/2023 12:53 PM Chencho Kingston MD DIAGNOSTIC IMAGIN G ORDERABLES * RI NASAL ENDOSCOPY,DX (10/20/2023 3:05 PM ACQUISITION MARKETING MANAGER) Narrative Rober Yung APRN-CNP - 10/20/2023 3:05 PM ACQUISITION MARKETING MANAGER Rober Yung APRN-CNP 10/20/2023 4:57 PM Due to the findings on physical examination, in correlation with the patient's symptomatology, the decision was made to perform a procedure today in clinic. Verbal consent obtained prior to starting procedure. Procedure note: Procedure: Rigid Nasal Endoscopy Pre Op Dx: Nasal secretions Post Op: same Anesthesia: Bilateral Nasal Cavities sprayed with Lidocaine and Neosynephrine Detail: Rigid nasal endoscopy performed bilaterally. Septum fairly midline. Bilateral nasal cavity showed good healing mucosa with healing mulberry tips, there were no polyps or purulence. Adenoid pad intact healing well without purulence or lesions. Pt tolerated the procedure well. Rober PHILLIPS PROCEDURE/ MINOR SURGICAL ORDERABLES * ETT LINE PERFORMABLE (09/07/2023 9:44 AM CDT) Kait Johnson APRN-CRNA - 09/07/2023 9:44 AM CDT Kait Boyd APRN-CRNA 09/07/2023 9:44 AM Endotracheal Tube Placement: Patient Location: OR. Procedure: intubation (09373). Procedure Section: Induction: standard IV Mask Ventilation: easy with oral airway. Blade Type: Celine Blade Size: 3 Laryngoscopy View: grade 1 (full cords) Intubation Adjuncts: stylet Tube: endotracheal tube Placement: oral Tube type: cuff - inflated Tube Size (MM): 7 Depth of Insertion (CM): 22.5 Cuff Inflated With: air Number of Attempts: 1. Placement Verified By: direct visualization, bilateral breath sounds, chest auscultation and CO2 monitor Tube secured with: adhesive tape. Dentition unchanged? Yes Difficult Airway? No. Staff Section Anesthesia Provider: Kait Boyd APRN-CRNA, Performed the procedure Jose Saab MD GENERAL ANESTHESIA O RDERABLES * MRI CERVICAL SPINE WO CONTRAST (06/21/2023 7:45 AM CDT) Anatomical Region Laterality Modality Pelvis Magnetic Resonan ce 06/21/2023 11:1 8 AM CDT Impressions 06/21/2023 11:30 AM CDT IMPRESSION: No significant disc herniation or stenosis is seen at any level of the cervical spine. 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 These are poorly evaluated on this examination which is directed to the cervical spine. CT of the neck with contrast could be performed for further evaluation if indicated. Edited by Elle Boyd on 06/21/2023 11:27 AM > Interpreting Provider: Lisa Patel MD on 06/21/2023 11:30 AM Narrative 06/21/2023 11:30 AM CDT PROCEDURE: MRI CERVICAL SPINE WO CONTRAST, DATE/TIME OF EXAM: 06/21/2023 7:59 AM, LOCATION [facility] INDICATION: M54.2: Cervicalgia. ADDITIONAL CLINICAL INFORMATION: Ordering Provider Reason For Exam: Technologist Note: Additional: COMPARISON: None. TECHNIQUE: The following sequences were obtained: Sagittal T1 and T2, axial T2 volume, axial gradient-echo axial T1, 3-D cervical myelogram, coronal T2. Alignment: There is straightening of the normal cervical lordosis. This is a nonspecific finding which may be secondary to muscle spasm or patient positioning. No focal malalignment is seen at any level. Spinal cord: The cervical spinal cord is normal in morphology and in signal intensity. No abnormal masses in the cervical spinal canal. Marrow: Normal. Intervertebral discs: Discs are normal in height and hydration. No significant disc herniation is seen at any level. Soft tissues: Sagittal images only show multiple nasopharyngeal cysts, possibly arising from adenoidal tissues. These are poorly evaluated on this examination which is directed to the cervical spine. CT of the neck with contrast could be performed for further evaluation. On direct axial imaging, there is no significant central canal or neural foraminal stenosis at any level of the cervical spine. Procedure Note Lisa Patel MD - 06/21/2023 PROCEDURE: MRI CERVICAL SPINE WO CONTRAST, DATE/TIME OF EXAM: 06/21/2023 7:59 AM, LOCATION [facility] INDICATION: M54.2: Cervicalgia. ADDITIONAL CLINICAL INFORMATION: Ordering Provider Reason For Exam: Technologist Note: Additional: COMPARISON: None. TECHNIQUE: The following sequences were obtained: Sagittal T1 and T2, axial [id number], axial gradient-echo axial T1, 3-D cervical myelogram, coronal T2. Alignment: There is straightening of the normal cervical lordosis. Thisis a nonspecific finding which may be secondary to muscle spasm or patient positioning. No focal malalignment is seen at any level. Spinal cord: The cervical spinal cord is normal in morphology and insignal intensity. No abnormal masses in the cervical spinal canal. Marrow: Normal. Intervertebral discs: Discs are normal in height and hydration. No significant disc herniation is seen at any level. Soft tissues: Sagittal images only show multiple nasopharyngeal cysts, possibly arising from adenoidal tissues. These are poorly evaluated onthis examination which is directed to the cervical spine. CT of the neck with contrast could be performed for further evaluation. On direct axial imaging, there is no significant central canal or neural foraminal stenosis at any level of the cervical spine. IMPRESSION: No significant disc herniation or stenosis is seen at any level of the cervical spine. 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 These are poorly evaluated on this examination which is directed to the cervical spine.CT of the neck with contrast could be performed for further evaluation if indicated. Edited by Elle Boyd on 06/21/2023 11:27 AM > Interpreting Provider: Lisa Patel MD on 06/21/2023 11:30 AM Sakshi Vasquez WOUND CARE TECHNICIAN-CAR DEALER MR ORDERABLES * RI LARYNGOSCOPY,FLEX FIBER,DIAGNOSTIC (05/12/2023 2:47 PM CDT) Narrative Ottoniel Dang MD - 05/12/2023 2:47 PM CDT Ottoniel Dang MD 05/12/2023 5:38 PM Procedure Note Anesthesia: Lidocaine 2% and Lucio-Synephrine 1/2% Endoscopy Type: Flexible Leuca-Ifvcgbroapervi-Scsirkigvosf Procedure Details: Informed consent was obtained. The patient was placed in the sitting position. After topical anesthesia and decongestion, the 4 mm laryngoscope was passed. The nasal cavities, nasopharynx, oropharynx, hypopharynx, and larynx were all examined. Vocal cords were examined during respiration and phonation. Following findings were noted: nonobstructive adenoid regrowth. Normal scarring from tonsillectomy. Septum relatively straight, mildly deviated superiorly to the right. No polyps, purulence, or lesions noted. Bilateral true vocal cords with full and symmetric movement. Superior 3-4 tracheal rings without signs of anatomic obstruction. Pt was additionally examined in the supine position, with particular attention paid to end-expiratory anatomy. The following findings were noted: Adenoid tissue with some obstruction. Hypertrophy of tongue base. Epiglottis in posterior position. Minimal response to jaw thrust. The patient tolerated procedure well. Complications: None Ottoniel Dang MD PROCEDURE/MINOR S URGICAL ORDERABLES * CULTURE URINE (04/18/2014 8:50 AM CDT) Culture Urine Less than 10,000 CFU/ML of Normal Urogenital/ Skin Maya [facility] Comment:. Urine specimen (specimen) URINE SPECIMEN OBTAINED BY CLEAN CATCH PROCEDURE / Unknown 04/18/2014 8:50 AM CDT 04/18/2014 2:47 PM CDT Narrative [facility] - 04/20/2014 11:05 AM CDT AndersonSpecimen#[id number] Balwinder Loc/Rm/Bed: ED// CLN CATCH U @04/18/14 0909: URINE CULTURE added. RFLXG = UAUCC. Historical Provider LAB - MICROBIOLOG Y ORDERABLES [address] [phone] * LAB RESULTS ORDER (01/24/2013 7:08 AM CDT) Only the most recent of2 resultswithin the time period is included. Narrative 01/24/2013 7:08 AM CDT Procedure Note Document, Scanned - 01/24/2013 7:08 AM CDT Scanned Document LAB - THERAPEUTIC DR HERNANDEZ MONITORING ORDERABLES * SONOGRAM - COMPLETE (01/09/2013 10:25 AM ACQUISITION MARKETING MANAGER) Only the most recent of3 resultswithin the time period is included. Anatomical Region Laterality Modality Other 01/09/2013 10:2 5 AM ACQUISITION MARKETING MANAGER Narrative 01/09/2013 1:25 PM ACQUISITION MARKETING MANAGER [facility] PHONE: FAX: Pat. Name: RICHA BROWN Pat. No: [id number] Study Date: 01/09/2013 10:25am , Age: 09 1985, 27 Pregnancies: 6, Para 2, Ab 3 LMP: 05/28/2012 GA by LMP: 32w2d GA by 1st: 32w2d GA by US: 32w4d GA Selected: 32w2d (LMP) LISA: 03/04/2013 Referring MD: CM BRUCE MD Hist/Ind: Abdominal Calcification Growth MEASUREMENTS & AGE GROWTH EVALUATION Measurement GA Range Srce %for GA Ratios ----- ---- ------- BPD 8.5 cm 34w0d (75n9x-55d1o) Hadl BPD 75% FL/BPD 0.76 (0.71 - 0.87) HC 29.8 cm 33w0d (93i0g-67l8x) Hadl HC 61% FL/AC 0.23 (0.20 - 0.24) AC 28.0 cm 32w0d (22f3v-29f2d) Hadl AC 46% HC/AC 1.07 (0.95 - 1.14) FL 6.4 cm 33w0d (90t2q-39k2i) Hadl FL 60% CI 0.81 (0.70 - 0.86) HL 5.7 cm 32w6d (27j9m-67d0p) Jamie HL 58% GA for sonogram 32w4d (98h0j-19h5u) Weight Estimate: based on (BPD,HC,AC,FL) Hadlock Weight: 2007 gm (9719-6694) Hadlo : 4lbs, 6oz Normal: 1870 gm (6883-6852) Brenn Wt% 58% for 32.3 wks Heart Rate: 158 bpm Amniotic Fluid Index: 16.4cm (08.5-24.3) CLINICAL SUMMARY Study Number: 3 A lakhani fetus is identified in cephalic presentation. Interval growth is appropriate and the amniotic fluid volume is within normal limits. The placenta is right lateral, Grade 1. Previously noted intrabdominal hyperechoic foci are again noted. No additional structural malformations are demonstrated. IMPRESSION: Single, live, IUP 32w2d, normal growth/Jackelyn Apparently isolated intrabdominal hyperechoic foci RECOMMEND: A findings were discussed. Maternal IgG avidity for CMV is high, therefore, even if infection demonstrated by amniocentesis she would not be a candidate for therapy with CMV hyperimmune gammaglobulin. Amniocentesis is declined. A follow up ultrasound to evaluate growth in 4 weeks is recommended and she would prefer this be performed locally. After delivery I recommend that urine be obtained for CMV culture and pcr, and that the have hearing assessment and eye examination. This was discussed with Richa. Thank you for allowing us the opportunity to care for your patient. Tara Russell MD <Electronic Signature> 01/09/2013 01:25pm Cm Bruce MD [facility] ORDERABLES * (ABNORMAL) CMV ANTIBODY IGG IGM BLOOD PANEL (11/28/2012 10:07 AM ACQUISITION MARKETING MANAGER) Cytomegalovirus Antibody IgG 4.6(H) <0.9 11/29/2012 12:04 PM ACQUISITION MARKETING MANAGER [facility] Cytomegalovirus Antibody IgM 0.4 <0.9 11/29/2012 12:04 PM ACQUISITION MARKETING MANAGER [facility] Blood specimen (specimen) BLOOD SPECIMEN / Unknown 11/28/2012 10:07 AM ACQUISITION MARKETING MANAGER 11/28/2012 10:14 AM ACQUISITION MARKETING MANAGER Narrative [facility] - 11/29/2012 12:04 PM ACQUISITION MARKETING MANAGER <0.9 Negative 0.9 - 1.0 Equivocal >=1.1 Positive Tara Russell MD LAB - CHEMISTRY ORD ERABLES Performing Organization Address City/[facility] Co de Phone Number [facility] [address] [place] [id number] * TOXOPLASMA ANTIBODY IGG/IGM PANEL (11/28/2012 10:07 AM ACQUISITION MARKETING MANAGER) Toxoplasma Antibody IgG Negative Negative 11/28/2012 1:13 PM ACQUISITION MARKETING MANAGER [facility] Toxoplasma Antibody IgM Negative Negative 11/28/2012 1:13 PM ACQUISITION MARKETING MANAGER [facility] Blood specimen (specimen) BLOOD SPECIMEN / Unknown 11/28/2012 10:07 AM ACQUISITION MARKETING MANAGER 11/28/2012 10:14 AM ACQUISITION MARKETING MANAGER Tara Russell MD LAB - CHEMISTRY ORD ERABLES [facility] [address] [place] [address] Care Teams Import Export Coordinator Relationship Specialty Start Date End Date Adela Juarez DO [address] [place] [phone] PCP - General Family Medicine 02/28/24
[2025-01-08 15:07] LABS: Influenza A QL RT-PCR Negative (Negative); Influenza B QL RT-PCR Negative (Negative); RSV RNA, RT-PCR Negative (Negative); SARS-CoV-2 RNA PCR Negative (Negative)
== END 2025-01-08 13:14 | disposition home or self-care (01) ==
LOC: ANHLAB 13:14
PROVIDERS: Visit Provider Internal Medicine Critical Care Medicine
DX: B34.9 Viral infection, unspecified (principal)
CPT/HCPCS: 87637

== ENCOUNTER 2025-01-15 07:47 | Outpatient (CLI) | payer OTHER, SELFPAY ==
--- NOTE | 2025-01-17 19:49 | WPDSLEEPSTUD ---
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 *01/11/2024 - AHI 20, desaturation 86% with absence of REM on the baseline, titrated using a final mask that was a medium ResMed Mirage Quattro fullface mask and an optimal pressure of 11 cm with 2 cm EPR. * 05/19/2023 echo; [facility] with Dr Freitas = normal EF 63%, mild LVH, normal diastolic dysfunction, mild MR, mild TR, RA 5 mm, PASP 25 mm Hg, normal. * 02/09/18 PSG; very short sleep latency and also REM latency most likely consistent with inadequately controlled narcolepsy. * 05/30/18 split night PSG; Severe HELDER, AHI 41 in supine, with a titration of CPAP, which improved sleep staging, the presence of significant REM rebound. Recommend APAP [id number] Sleep History Richa Brown is a 39 year old female with narcolepsy, also has obstructive sleep apnea. She has irregular sleep cycles, can be awake for 24-48 hours and then will sleep 3 days in a row. She has a difficult time falling asleep, staying asleep and she wakes up too early at times. She recently had an airlift surgery in July at [facility]. This procedure is designed to help reduce the severity of obstructive sleep apnea. She is being retested to identify a new optimal pressure. Since having her surgery she only occasionally awakens from sleep feeling short of breath. She constantly awoke and feeling short of breath prior to the surgery. She frequently awakens at night with heartburn, belching or coughing. She constantly snores loudly enough that others complain. She constantly has difficulty sleeping when she has a cold. She occasionally wakes up gasping for breath at night. She frequently has breathing problems at night observed by others. She frequently sweats excessively at night. She occasionally notices her heart pounding or beating irregularly at night. She constantly falls asleep during the day, constantly falls asleep involuntarily and would fall asleep while driving but she does not drive for this reason. She occasionally has loss of muscle tone with strong emotion. She constantly has daytime difficulties due to excessive sleepiness. She constantly feels paralyzed on waking or falling asleep. She constantly has vivid dreamlike scenes upon awakening or falling asleep. She rarely feels afraid to go to sleep. She occasionally has nightmares. She occasionally has dream recall. She constantly has racing thoughts, feelings of sadness, depression and anxiety. She constantly has muscular tension. She constantly notices parts of her body jerking. She occasionally kicks at night. She frequently has crawling and aching feelings in her legs and leg pain during the night. She occasionally has morning jaw pain. She never grind her teeth during sleep. She constantly is bothered by pain during the day. She frequently is awakened by pain at night. She constantly wakes up feeling stiff in the morning, constantly wakes up with sore achy muscles and pain in the neck and spine. She has memory and concentration difficulties. Normal bedtime is between 11:00 p.m. and 4:00 a.m., taking a variable amount of time to fall asleep. When she wakes during the night she walks around the house or just returns to bed and turns on the television. Her normal wake time is between 5:00 a.m. and 6:00 a.m. to help get her youngest child off to school. Her weekend schedule stays the same. She estimates getting 3-5 hours of sleep reliably but she may sleep many more hours than that. She has no active social life due to her many health problems and her abnormal sleep schedule. She takes naps in the afternoon or evening. A short nap is not refreshing. She is usually drowsy for 3 hours after waking. Habits: Tobacco: quit years ago Caffeine: 2 cups/day Alcohol: twice per month Recreational substances: none PMFSH Past Medical History Medical History (Updated 01/17/25 @ 20:12 by Lucrecia Burger MD) Narcolepsy without cataplexy HELDER (obstructive sleep apnea) Airway problem (07/30/24) air way implant for sleep apnea Hypertrophy, nasal, turbinate Leaky heart valve Unspecified asthma Atopy Body mass index (BMI) 40.0-44.9, adult Chest tightness Elevated blood pressure reading Essential hypertension Exacerbation of intermittent asthma Hospital discharge follow-up Hyper-IgE syndrome Hyperlipemia, mixed Hypersomnia Mild intermittent asthma without complication Morbid obesity with BMI of 45.0-49.9, adult On circulation assistant drug therapy Primary insomnia Surgical History Surgical History H/O adenoidectomy S/P cubital tunnel release History of carpal tunnel release History of robot-assisted laparoscopic hysterectomy (06/15/18) RA total lscope hysterectomy--menorrhagia, enlarged uterus, failed ablation History of general surgical procedure (03/28/18) excision of soft tissue mass in (R) inguinal region History of endometrial ablation (07/08/16) menometrorrhagia, dysmenorrhea, enlarged uterus History of dilation and curettage (06/17/16) menometrorrhagia--fragment of disordered proliferative endometrium, benign endometrial polyp History of hernia repair 200705/23/14 repair of recurrent ventral hernia robotic assisted prosthetic mesh History of 2005 primary c/s--breech 2013 rpt c/s w/tubal ligation History of tonsillectomy (~2000) Family History Family History Mother Hypertension Asthma Family history of sleep apnea Heart murmur Grandparent Diabetes mellitus maternal grandmother Heart disease maternal grandmother Hypertension maternal grandmother Alcoholism Other Malignant tumor of ovary maternal aunt Grandparent Diabetes mellitus Social History Social History (Updated 01/07/25 @ 09:27 by KOJO Martinez) Smoking status: Former smoker Smokeless tobacco user: chewing tobacco Second hand tobacco smoke exposure: Yes Smoking end date: 11/14/12 Alcohol intake: current Alcohol use details: socially Substance use: never Substance use type: does not use Do You Feel Safe in your Home?: Yes Lack of Transportation: No Lack of Food: Sometimes True Current Housing: I Have Housing Concerned About Future Housing: No Difficulty Paying Gas/Electric Bills: YES Difficulty Paying for Meds: No Currently Unemployed: No Education: Trade/Vocational Certificate Difficulty w/ Childcare or Family Care: No Living arrangements: with family Additional living arrangements comments: single Occupation/Education: unemployed 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 Gender identity (if verbalized by the patient): Female Sexual Orientation (if Verbalized by the Patient): Straight or Heterosexual Medications Home Medications ?Medication ?Instructions ?Recorded ?Confirmed ?Type albuterol sulfate 2.5 mg/3 mL 2.5 mg (3 mL) inhalation QID PRN 01/11/22 01/08/25 Rx (0.083 %) solution for nebulization shortness of breath or wheezing #360 mL mecobalamin (vitamin B12) 10,000 10,000 mcg IM MONTHLY 11/17/22 01/08/25 History mcg solution for injection azelastine 137 mcg (0.1 %) nasal intranasal 09/29/23 01/08/25 History spray cetirizine 10 mg tablet 10 mg PO DAILY 09/29/23 01/08/25 History cyclobenzaprine 10 mg tablet 0.5 mg PO TID PRN 09/29/23 01/08/25 History ergocalciferol (vitamin D2) 1,250 1,250 mcg PO WEEKLY 09/29/23 01/08/25 History mcg (50,000 unit) capsule famotidine 40 mg tablet 40 mg PO DAILY 09/29/23 01/08/25 History losartan 50 mg tablet 50 mg PO DAILY 09/29/23 01/08/25 History pantoprazole 40 mg tablet,delayed mg PO 09/29/23 01/08/25 History release escitalopram oxalate 20 mg tablet 20 mg PO DAILY 12/29/23 01/08/25 History (Lexapro) fluticasone propionate 50 1 spray intranasal BID #16 grams 04/12/24 01/08/25 Rx mcg/actuation nasal spray,suspension (Flonase Allergy Relief) budesonide-formoterol HFA 160 See Rx Instructions .Route 06/12/24 01/08/25 Rx mcg-4.5 mcg/actuation aerosol .COMPLEX #10.2 grams inhaler (Symbicort) amlodipine 10 mg tablet 10 mg PO DAILY 07/23/24 01/08/25 History buspirone 7.5 mg tablet 7.5 mg PO BID 07/23/24 01/08/25 History naproxen 500 mg tablet 500 mg PO BID 07/23/24 01/08/25 History topiramate 100 mg tablet 100 mg PO BID 07/23/24 01/08/25 History tiotropium bromide 1.25 See Rx Instructions .Route 08/29/24 01/08/25 Rx mcg/actuation mist for inhalation .COMPLEX #4 grams (Spiriva Respimat) albuterol sulfate 90 mcg/actuation See Rx Instructions .Route 10/04/24 01/08/25 Rx aerosol inhaler .COMPLEX #8.5 grams montelukast 10 mg tablet 10 mg PO QHS 1 month #30 tabs 10/28/24 01/08/25 Rx sodium oxybate 6 gram 6 g PO ONCE narcolepsy 1 month #30 11/22/24 01/08/25 Rx granules,extended release in ea packet (Lumryz) modafinil 200 mg tablet 200 mg PO BID 1 month #60 tabs 12/28/24 01/08/25 Rx azithromycin 250 mg tablet See Rx Instructions PO .COMPLEX #6 01/07/25 01/08/25 Rx tabs fluconazole 200 mg tablet 200 mg PO DAILY #1 tablet 01/07/25 01/08/25 Rx (Diflucan) Sleep Procedure A split night polysomnogram using the [employer] multi-channel system recorded the standard physiologic parameters including EEG, EOG, submentalis EMG, anterior tibialis EMG, EKG, body position, nasal and oral airflow using nasal pressure sensor and thermistor. Respiratory parameters of chest and abdominal movements were recorded with Respiratory Inductance Plethysmography belts. Oxygen saturation was recorded by pulse oximetry. Video monitoring was also performed. Sleep stages, periodic limb movements, and EEG arousals were scored in 30 second epochs according to the criteria of the AASM Scoring Manual. The Apnea-Hypopnea Index was calculated using CMS guidelines for definition of hypopnea while scoring respiratory events. No sleep aid was taken at the beginning of the study. This was a split night study with an MSLT decision in the morning as the patient has narcolepsy. She met criteria after the baseline portion. After the baseline portion the patient met criteria for a titration with an AHI of 15.8 and desaturation to 86%. She initially was fitted with a medium ResMed F 30 I fullface mask, was not able to tolerate this, was switched to a small ResMed Mirage Quattro mask. This is the mask that she used to complete the titration. She was started at CPAP 5 cm which was too low for comfort, could not tolerate the low pressure, and this was increased t 7 cm, also too low to fall asleep. She was increased to 9 cm then 11 cm At 11 cm, she spent 74 minutes in bed, 1.5 minutes awake, 26.5 minutes in non-REM and 46 minutes in REM. The residual apnea-hypopnea index was 1.7 and the lowest saturation was 90%. This is the optimal pressure. She had REM in the left lateral position. Sleep was more consolidated during the titration. She had 3 dense REM episodes during the titration. Sleep Architecture During the diagnostic portion of the study, the total recording time was 199.2 minutes. The total sleep time was 148.0 minutes. Sleep latency was 13.7 minutes. REM latency was 109.0 minutes. Sleep Efficiency was 74.3%. The patient had 20 awakenings for an awakening index of 8.1. Wake after sleep onset time was 37.5 minutes. The patient spent 13.0 minutes, 8.8% of total sleep time in Stage N1. The patient spent 90.5 minutes, 61.1% in Stage N2. The patient spent 17.0 minutes, 11.5% in Stage N3. The patient spent 27.5 minutes, 18.6% in Stage REM sleep. At 01:19:26 AM the patient was placed on PAP treatment using a medium ResMed AirFit F30i fullface mask, then switched to a small ResMed Mirage Quattro fullface mask, was titrated at pressures ranging from CPAP 5 cm to CPAP 11 cm. During the treatment portion of the study, the total recording time was 286.8 minutes. The total sleep time was 246.0 minutes. Sleep latency was 27.0 minutes. REM latency was 12.5 minutes. Sleep Efficiency was 85.8%. Wake after Sleep Onset time was 14.0 minutes. The patient spent 10.5 minutes, 4.3% of total sleep time in Stage N1. The patient spent 119.0 minutes, 48.4% in Stage N2. The patient spent 1.0 minutes, 0.4% in Stage N3. The patient spent 115.5 minutes, 47.0% in Stage REM. Respiratory Analysis During the diagnostic portion of the study, the patient had 39 hypopneas, no obstructive, mixed, or central apneas for an overall Apnea Hypopnea Index of 15.8 events per hour. The REM Apnea Hypopnea Index was 17.5. The NREM Apnea Hypopnea Index was 15.4. The patient had a Central Apnea Hypopnea Index of 0. There was 1 Respiratory Effort Related Arousal resulting in a RERA index of 0.4 events per hour. The Respiratory Disturbance Index is 16.2 events per hour. There was no evidence of Jhonny-Jeong Respirations. During the treatment portion of the study, the patient had 4 hypopneas, no obstructive, mixed apneas, and 2 central apneas for an overall Apnea Hypopnea Index of 1.5 events per hour. The REM Apnea Hypopnea Index was 2.6. The NREM Apnea Hypopnea Index was 0.5. The patient had a Central Apnea Hypopnea Index of 0.5. There were no Respiratory Effort Related Arousals. The Respiratory Disturbance Index is 1.5 events per hour. There was no evidence of Jhonny-Jeong Respirations. Arousals During the diagnostic portion of the study, there were a total of 106 arousals for an arousal index of 43.0. There were 24 respiratory arousals for an index of 9.7. There were 4 periodic limb movement arousals for an index of 1.6. There were 11 isolated limb movement arousals for an index of 4.5. There were 28 spontaneous arousals for an index of 11.4. During the treatment portion of the study, there were a total of 45 arousals for an index of 11.0. There were - respiratory arousals for an index of -. There were - periodic limb movement arousals for an index of -. There were 3 isolated limb movement arousals for an index of 0.7. There were 32 spontaneous arousals for an index of 7.8. Periodic Limb Movements During the diagnostic portion of the study, the patient had 23 isolated limb movements with an index of 9.3. The patient had 19 periodic limb movements with an index of 7.7. The patient had a total of 42 limb movements with a total limb movement index of 17.0. During the treatment portion of the study, the patient had 13 isolated limb movements with an index of 3.2. The patient had no periodic limb movements. The patient had a total of 13 limb movements with a total limb movement index of 3.2. Oximetry Data During the diagnostic portion of the study, the patient had an average oxygen saturation of 95% in wake with a minimum oxygen saturation of 895 and a maximum oxygen saturation of 99%. The patient had an average oxygen saturation of 93.1% in sleep with a minimum oxygen saturation of 86% and a maximum oxygen saturation of 98%. The patient had 40 oxygen desaturations resulting in an Oxygen Desaturation Index of 16.2. The patient spent 0.5 minutes, 0.2% of total sleep time with an oxygen saturation less than 88%. During the treatment portion of the study, the patient had an average oxygen saturation of 96.1% in wake with a minimum oxygen saturation of 91% and a maximum oxygen saturation of 99%. The patient had an average oxygen saturation of 93.8% in sleep with a minimum oxygen saturation of 89% and a maximum oxygen saturation of 98%. The patient had 5 oxygen desaturations resulting in an Oxygen Desaturation Index of 1.2. The patient spent no time with an oxygen saturation less than 88%. Snoring Profile Snoring was moderate to loud before the PAP titration, eliminated during the titration. Cardiac Profile During the diagnostic portion of the study, the EKG showed normal sinus rhythm. The average pulse rate was 78.3 bpm. The minimum pulse rate was 64 bpm. The maximum pulse rate was 103 bpm. No arrhythmias noted. EEG Profile EEG was unremarkable, no evidence of seizures. Assessment and Plan Assessment and Plan (1) HELDER (obstructive sleep apnea): Code(s): G47.33 - Obstructive sleep apnea (adult) (pediatric) Status: Acute Assessment and Plan: This split night sleep study on 01/16/2024 shows at baseline moderate obstructive sleep apnea, the apnea-hypopnea index is 15.8 using a 4% criteria with desaturation 86% and moderate to loud snoring, successfully treated using CPAP 11 cm of water pressure and a small ResMed Mirage Quattro fullface mask with heated humidity. The patient had a residual apnea-hypopnea index of 1.7, lowest saturation was 90% and REM occurred in the left lateral position. The patient should be prescribed this ResMed equipment as well as tubing, filters and reservoir. This should be used with all episodes of sleep. Compliance should be reviewed within 31-90 days of starting therapy for usage greater than 4 hours per night greater than 70% of the nights. The patient should be asked about symptoms such as excessive daytime sleepiness, quality of sleep, decreased nocturia, increased mental functioning such as memory, mood, and concentration. In July 2024, the patient had an AirLift procedure which lifts and suspends the hyoid bone creating tension that keeps the airways open while sleeping. The patient had severe obstructive sleep apnea prior t othe procedure, and the AirLift appears to have reduced the severity of her HELDER so that she may be able to tolerate a lower pressure to maintain airway patency. BMI is 50. This is higher than when she had her last PSG. Weight management is advised. Clinical data suggests that weight loss of 10% can reduce the severity of respiratory events and snoring and improve AHI by as much as 25%. (2) Narcolepsy without cataplexy: Code(s): G47.419 - Narcolepsy without cataplexy Status: Acute Assessment and Plan: She was diagnosed with narcolepsy several years ago, take modafinil to increased her daytime alertness. She continues to have excessive daytime sleepiness due to unterated obstructive sleep apnea. She has used Lumryz, sodium oxybate, to treat her narcolepsy with severe sleep inertia on waking. Data The data obtained during this sleep study is adequate for interpretation. Certification This sleep study has been reviewed by a board certified sleep medicine physician.
[2025-01-17 20:56] VITALS: BMI 50.5
== END 2025-01-16 07:38 | disposition home or self-care (01) ==
LOC: ANHCSM 07:49
PROVIDERS: Visit Provider Internal Medicine Critical Care Medicine
DX: G47.33 Obstructive sleep apnea (adult) (pediatric) (principal); G47.419 Narcolepsy without cataplexy
CPT/HCPCS: 95811